=== PATIENT | female | born 1940 | race Caucasian/White ===

== ENCOUNTER 2019-06-09 10:33 | Inpatient (IN) | payer SELFPAY | END 2019-06-13 12:24 | disposition home or self-care (01) | DRG 291 | PROVIDERS: Admitting Provider Family Medicine; Family Provider Family Medicine; PCP Family Medicine; Visit Provider Family Medicine | DX: I13.0 Hypertensive heart and chronic kidney disease with heart failure and stage 1 through stage 4 chronic kidney disease, or unspecified chronic kidney disease (principal); I50.33 Acute on chronic diastolic (congestive) heart failure; N18.3 Chronic kidney disease, stage 3 (moderate); Z23 Encounter for immunization; Z86.73 Personal history of transient ischemic attack (TIA), and cerebral infarction without residual deficits; I65.23 Occlusion and stenosis of bilateral carotid arteries; I48.0 Paroxysmal atrial fibrillation; Z79.01 Long term (current) use of anticoagulants; E03.9 Hypothyroidism, unspecified; K21.9 Gastro-esophageal reflux disease without esophagitis; Z95.3 Presence of xenogenic heart valve; F40.240 Claustrophobia; I34.0 Nonrheumatic mitral (valve) insufficiency; I27.20 Pulmonary hypertension, unspecified; D64.9 Anemia, unspecified; E78.5 Hyperlipidemia, unspecified; J44.9 Chronic obstructive pulmonary disease, unspecified; Z87.891 Personal history of nicotine dependence; Z99.81 Dependence on supplemental oxygen ==

== ENCOUNTER → 2021-12-03 10:13 | Outpatient (BNVA) | payer MEDICARE, MEDICAID, SELFPAY | PROVIDERS: Family Provider Family Medicine; PCP Family Medicine; Visit Provider Family Medicine | DX: I10 Essential (primary) hypertension (principal); E78.5 Hyperlipidemia, unspecified; E03.9 Hypothyroidism, unspecified | CPT/HCPCS: 80053; 80061; 84443; 85025 ==

== ENCOUNTER → 2023-07-15 13:39 | Outpatient (BNVA) | payer MEDICARE, MEDICAID, SELFPAY | PROVIDERS: Family Provider Family Medicine; PCP Family Medicine; Visit Provider Family Medicine | DX: E03.9 Hypothyroidism, unspecified (principal); I25.10 Atherosclerotic heart disease of native coronary artery without angina pectoris; R25.1 Tremor, unspecified; M06.9 Rheumatoid arthritis, unspecified | CPT/HCPCS: 80053; 80061; 84443; 85025 ==

== ENCOUNTER 2023-10-01 06:31 | Inpatient (IN) | payer MEDICARE, SELFPAY ==
[2023-10-01] VITALS (31 sets, daily range): BP systolic 75–128; BP diastolic 35–79; PULSE 55–88; RESP 16–66; TEMP 36.6–37.6; O2SAT 84–95; BMI 21.7
--- NOTE | 2023-10-01 06:36 | ECG_ITS ---
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 Measurements Intervals [place] Rate: 66 P: 98 GA: 148 QRS: 53 QRSD: 94 T: 86 QT: 381 QTc: 399 Interpretive Statements SINUS RHYTHM WITH FREQUENT SUPRAVENTRICULAR PREMATURE COMPLEXES NONSPECIFIC ST & T-WAVE ABNORMALITY ABNORMAL RHYTHM ECG Compared to ECG 06/09/2019 15:56:42 No significant changes Electronically Signed On 10-01-2023 17:06:06 CDT by Maynor Gomes M.D. [id number]
--- NOTE | 2023-10-01 06:36 | XR_ITS ---
WS: [id number] Examination: XR chest 1V portable [id number] Reason for Exam: dyspnea/cough Date: October 01, 2023 Comparison: June 10, 2019 Findings: The heart is enlarged. Sternal wires are noted with previous valve replacement. The kwadwo are prominent with right perihilar opacity. There is pulmonary venous hypertension and I suspect mild edema. Small effusions are suspected Impression: There is cardiomegaly with pulmonary venous hypertension/mild edema Questionable minimal right perihilar infiltrate is suspected.
[2023-10-01 06:51] LABS: Basophils % 0.2 %; Hematocrit 31.3 % (36-47); Lymphocytes # 1.1 10^3/uL (0.8-4.8); Lymphocytes % 8.5 %; Mean Corpuscular HGB Conc 31.3 g/dL (30-55); Mean Corpuscular Hemoglobin 30.2 pg (27-33); Mean Corpuscular Volume 96.6 fl (85-98); Mean Platelet Volume 9.7 fL (7.4-10.4); Monocytes # 0.7 10^3/uL (0.2-0.9); Monocytes % 5.5 %; Neutrophils # 11.47 10^3/uL (1.8-7.7); Neutrophils % 85.3 %; Nucleated Red Blood Cells % 0 %; Platelet Count 164 10^3/cmm (157-399); Red Blood Count 3.24 10^6/uL (3.85-5.65); Red Cell Distribution Width 14.2 % (12.1-15.1); White Blood Count 13.45 10^3/uL (3.29-11.43)
--- NOTE | 2023-10-01 06:57 | ED_ITS ---
HPI - SOB/Dyspnea 2 General: Chief Complaint: Shortness of Breath/Dyspnea Stated Complaint: Sob, Weakness Time Seen by Provider: 10/01/23 06:35 Source: patient Mode of arrival: ambulatory History of Present Illness: HPI Narrative: 83-year-old female presents emergency ro om with complaints of progressively worsening shortness of breath weakness some low-grade fever moderate productive cough. EMS was called for shortness of breath and weakness she denies chest pain. On arrival EMS reports sats were in the 70 percentile. Patient normally wears 2 L of oxygen by nasal cannula given albuterol treatment sats improved to the 90s and then decreased into the mid upper 80s on arrival here continuing on 6 L. He denies any hemoptysis. History of previous aortic aneurysm repair in 2019. MD elicited complaint: shortness of breath and cough Pertinent past history: COPD Onset (ago): day(s) Associated symptoms: Reports chest congestion, cough and fever(s); Deny abdominal pain, chest pain, diaphoresis, dizziness, extremity pain, hemoptysis, lightheadedness, myalgias, nausea, orthopnea, palpitations, paresthesias, polydipsia, polyuria, rash, sense of impending doom, syncope or vomiting Treatment prior to arrival: oxygen and bronchodilator Review of Systems 2 Const: Reports: fever(s), chills, fatigue and malaise; Denies: diaphoresis Card: Denies: chest pain, palpitations, lightheadedness, syncope or orthopnea Resp: Reports: dyspnea, productive cough, wheezing and chest congestion; Denies: hemoptysis GI: Denies: abdominal pain, nausea or vomiting : Denies: dysuria, urinary frequency or urinary urgency Musc: Denies: neck pain, back pain or extremity pain Skin/Breast: Denies: rash Neuro: Denies: dizziness Endo: Denies: polyuria or polydipsia PFSH ED 2 PFSH: Medical History Parkinsons disease Tremor Hypothyroid Coronary artery disease Rheumatoid arthritis Physical Exam 2 Const: GENERAL APPEARANCE: cooperative and comfortable O RIENTATION/CONSCIOUSNESS: Yes awake, Yes oriented to person, Yes oriented to place and Yes oriented to time HENMT: COMMON NORMALS: normocephalic, atraumatic and hearing grossly normal bilaterally HEAD & SCALP: normocephalic and atraumatic Resp: COMMON NORMALS: normal respiratory effort, No retractions and No use of accessory muscles AUSCULTATION: rhonchi and wheezes Cardio: COMMON NORMALS: regular rate, regular rhythm and No murmurs present (Cardio) RATE: regular rate RHYTHM: regular rhythm GI: COMMON NORMALS: Soft to palpation and No hepatosplenomegaly present A USCULTATION: Yes normoactive bowel sounds PALPATION: Yes Soft to palpation, No Tenderness to palpation present (GI), No Guarding due to palpation present (GI) and Yes No hepatosplenomegaly present Extremity: COMMON NORMALS: normal to inspection, capillary refill normal, no clubbing, cyanosis or edema, no calf tenderness and no pedal edema Neuro: SENSORIUM/ORIENTATION: Yes oriented to person, Yes oriented to place and Yes oriented to time Skin: COMMON NORMALS: no rashes or lesions noted GENERAL SKIN EXAM: no rashes or lesions noted Course 2 Vital Signs: Vital signs: Vital Signs Temperature 98.0 F 10/01/23 07:26 Pulse Rate 67 10/01/23 09:15 Respiratory Rate 27 H 10/01/23 09:15 Blood Pressure 104/72 10/01/23 09:31 Pulse Oximetry 90 10/01/23 09:15 Oxygen Delivery Me thod Oxymask 10/01/23 09:15 Oxygen Flow Rate 10 10/01/23 09:15 MDM - SOB/Dyspnea Medical Decision Making Did not give sepsis bolus due to congestive heart failure COPD exacerbation with underlying pneumonia and congestive heart failure. Labs and imaging reviewed lactic acid is slightly elevated discussed Dr. Wooten antibiotics have been started I did not give a fluid bolus because of her CHF. Reviewed findings with patient as well orders written Medical Records I reviewed the patient's medical records. Lab Data I reviewed the patient's lab results. 10/01/23 06:46 10/01/23 06:46 Labs/Radiology: Laboratory Results WBC 13.45 10^3/uL (3.29-11.43) H 10/01/23 06:46 RBC 3.24 10^6/uL (3.85-5.65) L 10/01/23 06:46 Hgb 9.80 g/dL (11.27-16.99) L 10/01/23 06:46 Hct 31.3 % (36-47) L 10/01/23 06:46 MCV 96.6 fl (85-98) 10/01/23 06:46 MCH 30.2 pg (27-33) 10/01/23 06:46 MCHC 31.3 g/dL (30-55) 10/01/23 06:46 RDW 14.2 % (12.1-15.1) 10/01/23 06:46 Plt Count 164 10^3/cmm (157-399) 10/01/23 06:46 MPV 9.7 fL (7.4-10.4) 10/01/23 06:46 Neut % (Auto) 85.3 % 10/01/23 06:46 Lymph % (Auto) 8.5 % 10/01/23 06:46 Mcminn % (Auto) 5.5 % 10/01/23 06:46 Eos % (Auto) 0.0 % 10/01/23 06:46 Baso % (Auto) 0.2 % 10/01/23 06:46 Neut # (Auto) 11.47 10^3/uL (1.8-7.7) H 10/01/23 06:46 Lymph # (Auto) 1.1 10^3/uL (0.8-4.8) 10/01/23 06:46 Mcminn # (Auto) 0.7 10^3/uL (0.2-0.9) 10/01/23 06:46 Eos # (Auto) 0.0 10^3/uL (0.0-0.8) 10/01/23 06:46 Baso # (Auto) 0.0 10^3/uL (0.0-0.1) 10/01/23 06:46 Nucleated RBC % (auto) 0 % 10/01/23 06:46 Nucleated RBCs # 0.0 /100WBC 10/01/23 06:46 Specimen Type Arterial 10/01/23 06:57 Sample Site Radial, left 10/01/23 06:57 ABG pH 7.35 (7.35-7.45) 10/01/23 06:57 ABG pCO2 39.4 mmHg (35-45) 10/01/23 06:57 ABG pO2 55.9 mmHg (80.0-100.0) L 10/01/23 06:57 ABG HCO3 21.7 mmol/L (22-26) L 10/01/23 06:57 ABG O2 Saturation Not Reportable 10/01/23 06:57 ABG Base Excess -3.5 mmol/L (-2.0-2.0) L 10/01/23 06:57 Neymar Test Pos 10/01/23 06:57 A-a O2 Gradient 5.9 mmHg (5-10) 10/01/23 06:57 Hematocrit < 10.0 % (37-47) L 10/01/23 06:57 Hgb O2 Saturation Not Reportable 10/01/23 06:57 Carboxyhemoglobin Not Reportable 10/01/23 06:57 Methemoglobin Not Reportable 10/01/23 06:57 Total Hemoglobin 0.1 g/dL (12-16) L 10/01/23 06:57 Sodium 137.0 mmol/L (131-143) 10/01/23 06:57 Potassium 4.7 mmol/L (3.5-5.0) 10/01/23 06:57 Glucose 114.0 mg/dL (70-115) 10/01/23 06:57 Ionized Calcium 1.2 mmol/L (1.1-1.4) 10/01/23 06:57 O2 Delivery Device Nc 10/01/23 06:57 O2 Liters/Min 7.0 % 10/01/23 06:57 Gas Substation Operator ID [place] 10/01/23 06:57 Sodium 134 mmol/L (136-145) L 10/01/23 06:46 Potassium 4.7 mmol/L (3.5-5.1) 10/01/23 06:46 Chloride 97 mmol/L (98-107) L 10/01/23 06:46 Carbon Dioxide 20 mmol/L (22-29) L 10/01/23 06:46 Anion Gap 21.7 (5-19) H 10/01/23 06:46 BUN 46 mg/dL (8-23) H 10/01/23 06:46 Creatinine 1.9 mg/dL (0.5-0.9) H 10/01/23 06:46 GFR Calculation Not Reportable 10/01/23 06:46 Glucose 117 mg/dL (65-115) H 10/01/23 06:46 Calculated Osmolality 291 mOsm/kg (285-295) 10/01/23 06:46 Lactic Acid 2.3 mmol/L (0.5-2.2) H 10/01/23 06:46 Calcium 8.7 mg/dL (8.5-10.5) 10/01/23 06:46 Total Bilirubin 1.2 mg/dL (0.15-1.2) 10/01/23 06:46 AST 234 U/L (0-32) H 10/01/23 06:46 ALT 108 U/L (0-33) H 10/01/23 06:46 Alkaline Phosphatase 90 U/L (35-105) 10/01/23 06:46 Troponin T Baseline 45 ng/L (0-10) H 10/01/23 06:46 Troponin T 120 Minute 45.56 ng/L (0-10) H 10/01/23 08:23 Delta Troponin T 0.56 ABS# (0-10) 10/01/23 08:23 NT-Pro-B Natriuret Pep 55412 pg/mL (0-450) H 10/01/23 06:46 Total Protein 6.8 g/dL (6.6-8.7) 10/01/23 06:46 Albumin 3.5 g/dL (3.5-5.2) 10/01/23 06:46 Globulin 3.3 g/dL (1.3-4.6) 10/01/23 06:46 Procalcitonin 2.65 ng/mL (0-0.5) H 10/01/23 06:46 Urine Color Yellow (Yellow) 10/01/23 07:26 Urine Appearance Clear (CLEAR) 10/01/23 07:26 Urine pH 5 (5-7) 10/01/23 07:26 Ur Specific Cameron 1.020 (1.005-1.030) 10/01/23 07:26 Urine Protein Neg (Negative) 10/01/23 07:26 Urine Glucose (UA) Norm (Normal) 10/01/23 07:26 Urine Ketones Negative (Negative) 10/01/23 07:26 Urine Blood 2+ (Negative) H 10/01/23 07:26 Urine Nitrate Negative (Negative) 10/01/23 07:26 Urine Bilirubin Neg (Negative) 10/01/23 07:26 Urine Urobilinogen Neg mg/dL (Negative) 10/01/23 07:26 Ur Leukocyte Esterase Trace (Negative) H 10/01/23 07:26 Urine RBC 0-4 /hpf (0-2) H 10/01/23 07:26 Urine WBC 0-4 /hpf (0-5) H 10/01/23 07:26 Ur Squamous Epith Cells 5-10 /hpf (0-5) H 10/01/23 07:26 Ur Transition Epith Cell 0-4 /hpf 10/01/23 07:26 Amorphous Sediment Not Reportable 10/01/23 07:26 Urine Bacteria 1+ /hpf (NONE) H 10/01/23 07:26 Hyaline Casts 15-25 /lpf H 10/01/23 07:26 Urine Mucus Trace /hpf 10/01/23 07:26 All radiology interpretation(s) finalized by discharge Discharge Plan Discharge Patient Disposition: Admitted As Inpatient Admit Provider: Johnnie Wooten Clinical Impression: Congestive heart failure, Acute exacerbation of chronic obstructive airways disease, Community acquired pneumonia, Parkinsons disease, Rheumatoid arthritis Condition: Stable Coding Level of Care Code ED Atmospheric Sciences Professor for Tory Walsh
[2023-10-01] MEDS: dexamethasone 10 mg/mL INJ IM (06:59)
[2023-10-01 07:08] LABS: ABG PCO2 39.4 mmHg (35-45); ABG PH Result 7.35 (7.35-7.45); Alveolar-Arterial Oxygen Gradi 5.9 mmHg (5-10); Arterial Blood Gas Hematocrit < 10.0 % (37-47); Base Excess ABG -3.5 mmol/L (-2.0-2.0); Blood Gas Allen Test Pos; Blood Gas Operator Identificat WALCI; Blood Gas Sample Site Radial, left; Blood Gas Sample Type Arterial; HCO3 ABG 21.7 mmol/L (22-26); Ionized Calcium Level - ABG 1.2 mmol/L (1.1-1.4); Oxygen Device NC; PO2 ABG 55.9 mmHg (80.0-100.0); Potassium Level - ABG 4.7 mmol/L (3.5-5.0); Total Hemoglobin 0.1 g/dL (12-16)
[2023-10-01 07:12] LABS: Alanine Aminotransferase 108 U/L (0-33); Albumin Level 3.5 g/dL (3.5-5.2); Alkaline Phosphatase 90 U/L (35-105); Anion Gap 21.7 (5-19); Aspartate Amino Transferase 234 U/L (0-32); Blood Urea Nitrogen 46 mg/dL (8-23); Calcium 8.7 mg/dL (8.5-10.5); Carbon Dioxide 20 mmol/L (22-29); Chloride 97 mmol/L (98-107); Creatinine Clr Calc Pharmacy 16.4143; Globulin 3.3 g/dL (1.3-4.6); Glucose 117 mg/dL (65-115); Osmolality Calculated 291 mOsm/kg (285-295); Potassium 4.7 mmol/L (3.5-5.1); Sodium 134 mmol/L (136-145); Total Bilirubin 1.2 mg/dL (0.15-1.2); Total Protein 6.8 g/dL (6.6-8.7)
[2023-10-01 07:13] LABS: Troponin(5th) Baseline 45 ng/L (0-10)
[2023-10-01] MEDS: ipratropium-albuterol 3 mL Neb INHALATION ×3 (07:15→20:12)
--- NOTE | 2023-10-01 07:45 | US_ITS ---
WS: [id number] RIGHT UPPER QUADRANT ULTRASOUND HISTORY: elevated transaminases COMPARISON: None available. Liver: 04/19/2019 cm in length. Normal size liver and echogenicity. No bile duct dilatation or mass. Portal Vein: Normal hepatopetal flow with monophasic waveform. Gallbladder: Normal gallbladder. There is mild gallbladder wall thickening but no stones or perichole cystic fluid. CBD: 0.2 cm Pancreas: Partially visualized and normal. Right kidney: 9.7 cm in length. Normal size and echogenicity. No hydronephrosis or mass. Aorta and IVC: Unremarkable abdominal aorta and IVC. Very small RIGHT pleural effusion and a very small amount of ascites. IMPRESSION: 1. Mild diffuse gallbladder wall thickening with no evidence for acute cholecystitis otherwise. Ther e are no stones or pericholecystic fluid. 2. No bile duct dilatation. 3. Very small RIGHT pleural effusion and a small amount of ascites.
--- NOTE | 2023-10-01 07:57 | PC.PHAR ---
pt states she takes care of her own medications-pt states she didnt take any meds today-pt brought in her med bottles she is taking except for her norco 5/325mg states she is still taking-ext med history shows carbidopa levodopa 10/100mg 1.5 tab tid filled 10/01/23 40d/s pt states she was really depressed and had upset stomach when taking states she told and was told to stop taking pt states she believes she stop taking it states she didnt bring the bottle in with her meds then shes not taking-
[2023-10-01 07:59] LABS: Protein Urine Neg (Negative); Urine Appearance Clear (CLEAR); Urine Color Yellow (Yellow); pH Urine 5 (5-7)
[2023-10-01 08:00] LABS: Add Urine Microscopic? YES; Bacteria Urine 1+ /hpf; Bilirubin Urine Neg (Negative); Blood Urine 2+ (Negative); Glucose Urine UA Norm (Normal); Ketones Urine Negative (Negative); Leukocyte Esterase Urine Trace (Negative); Nitrate Urine Negative (Negative); RBC Urine 0-4 /hpf (0-2); Urobilinogen Urine Neg (Negative); WBC Urine 0-4 /hpf (0-5)
[2023-10-01 08:01] LABS: Mucus Urine TRACE /hpf; Transitional Epi Cells Urine 0-4 /hpf
[2023-10-01 08:02] LABS: Add Urine Culture? No; Hyaline Casts Urine 15-25 /lpf
[2023-10-01 08:04] LABS: NT Pro B Type Natriuretic Pept 22694 pg/mL (0-450); Procalcitonin 2.65 ng/mL (0-0.5)
[2023-10-01] MEDS: FUROsemide 10 mg/mL SDV 10mL 60 MG IVP (08:36)
[2023-10-01] MEDS: cefTRIAXone 1,000 MG in sodium chloride 0.9% (plus) 50 ML 100 MG IV (08:36)
--- NOTE | 2023-10-01 08:36 | ECG_ITS ---
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 Measurements Intervals [place] Rate: 65 P: 94 AL: 144 QRS: 51 QRSD: 98 T: 85 QT: 420 QTc: 437 Interpretive Statements SINUS RHYTHM Compared to ECG 10/01/2023 06:47:03 T-wave abnormality no longer present Electronically Signed On 10-01-2023 17:34:09 CDT by Maynor Gomes M.D. [email or web address] [id number]
[2023-10-01 08:40] LABS: Lactic Sepsis W/Reflex 2.3 mmol/L (0.5-2.2)
[2023-10-01 08:45] LABS: Troponin 5 2HR 45.56 ng/L (0-10); Troponin 5 2HR Delta 0.56 ABS# (0-10)
--- NOTE | 2023-10-01 09:13 | USCV_ITS ---
Lurdes Elena Age: 83 Gender: F : 1940 Exam Date: 10/01/2023 10:35 Ordering Phys: Johnnie Wooten MD Technologist: Jitendra Lucio [place] [facility] [place]: chf BP: 104 / 72 HR: 58 Rhythm: Sinus Technical Quality: Adequate MEASUREMENTS (Male / Female) Normal Values 2D ECHO LVOT Diameter 2.0 cm LV Ejection Fraction MOD 2C 79.1 % LV Ejection Fraction 2C AL 79.6 % LA Diameter 4.2 cm RA Systolic Volume 4C AL 29.9 ml RA Systolic Volume 4C MOD 29.5 ml Aorta at Sinotubular Diameter 1.9 cm IVC Diameter 2.2 cm M-MODE LA Ao Ratio MM 1.4 AV Cusp Separation MM 1.0 cm DOPPLER AV Peak Velocity 250.0 cm/s AV Area Cont Eq vti 1.9 cm squared AV Area Cont Eq pk 1.9 cm squared MV Peak Velocity 174.0 cm/s MV Area PHT 2.8 cm squared Mitral E to A Ratio 1.9 TR Peak Velocity 427.0 cm/s TR Peak Gradient 72.9 mmHg TR Mean Velocity 360.0 cm/s TR Mean Gradient 53.7 mmHg TR Velocity Time Integral 143.9 cm PV Peak Velocity 81.7 cm/s RV Ejection Time 0.3 s FINDINGS Left Ventricle Left ventricle is normal in size. LV systolic function is normal with EF of 55 to 60%. No regional wall motion abnormalities. Grade 3 diastolic dysfunction. Right Ventricle Normal in size and function Right Atrium Normal in size Left Atrium Normal in size Mitral Valve Structurally normal mitral valve. Moderate mitral regurgitation. Aortic Valve Aortic valve is thickened. Moderate aortic regurgitation. Mild aortic stenosis with aortic valve area of 1.91 cm squared and mean gradient of 11 mmHg. Tricuspid Valve Moderate tricuspid regurgitation. RVSP is more than 70 mmHg. This is consistent with severe pulmonary hypertension. Pulmonic Valve Moderate pulmonic regurgitation. Pericardium Normal Aorta Normal in size IVC Dilated CONCLUSIONS LV systolic function is normal with EF of 55 to 60%. Grade 3 diastolic dysfunction. Moderate mitral regurgitation. Moderate aortic regurgitation. Mild aortic stenosis. Moderate tricuspid regurgitation. Severe pulmonary hypertension Moderate pulmonic regurgitation IVC is dilated. Jean Prince MD (Electronically Signed) Final Date: 01 October 2023 11:34 S
[2023-10-01] MEDS: azithromycin 500 MG in sodium chloride 0.9% 250 ML 250 MG IV (09:29)
[2023-10-01 09:48] LABS: Adenovirus Not Detected (NOT DETECT); Chlamydia Pneumoniae Not Detected (NOT DETECT); Coronavirus 229E,HKU1,NL63,OC4 Not Detected (NOT DETECT); Human Metapneumovirus Not Detected (NOT DETECT); Human Rhinovirus/Enterovirus Not Detected (NOT DETECT); Influenza A Not Detected (NOT DETECT); Influenza A H1 Not Detected (NOT DETECT); Influenza A H1-2009 Not Detected (NOT DETECT); Influenza A H3 Not Detected (NOT DETECT); Influenza B Not Detected (NOT DETECT); Mycoplasma Pneumoniae Not Detected (NOT DETECT); Parainfluenza Virus Type 1 Not Detected (NOT DETECT); Parainfluenza Virus Type 2 Not Detected (NOT DETECT); Parainfluenza Virus Type 3 Not Detected (NOT DETECT); Parainfluenza Virus Type 4 Not Detected (NOT DETECT); Respiratory Syncytial Virus A Not Detected (NOT DETECT); Respiratory Syncytial Virus B Not Detected (NOT DETECT); SARS-COV-2 Not Detected (NOT DETECT)
[2023-10-01 09:49] LABS: Iron 35 ug/dL (37-145); Percent Saturation 15.5 % (20-50); Thyroid Stimulating Hormone 0.51 uIU/mL (0.27-4.20); Total Iron Binding Capacity 225 mcg/dl; Unsaturated Iron Binding 190 ug/dL (112-347)
[2023-10-01 10:03] LABS: Ferritin 1125 ng/mL (15-150)
[2023-10-01 10:16] LABS: Reflex Lactate Order REFLEX LACTIC ORDERD
--- NOTE | 2023-10-01 10:39 | PM.HP ---
Documented by User: Ct Magdalena, [facility] 10/01/23 13:34 Providers/Chief Complaint Admitting Physician: Johnnie Wooten MD Primary Care Provider: Jerry Xavier MD Chief Complaint: Sob, Weakness History of Present Illness Lurdes Elena is a 83 year old female with past medical history of hypothyroidism, CAD, Parkinsons disease, rheumatoid arthritis, and arterial fibrillation on chronic anticoagulation of Eliquis, and a recent aortic aneurysm repair in 2019. Mrs. Elena presents to the emergency department today for chief complaint of weakness and shortness of breath, currently on 10L oxymask. About 3 days ago patient started feeling more short of breath and weak, today she felt her worst and on arrival to the emergency room her oxygen stat was noted to be about 70%, she is currently supplemented with 10L oxymask. She reports that she does wear 2L NC at baseline. She currently denies chest pain, nausea, vomiting, diarrhea. Reports low grade fevers, chills, fatigue, wheezing,and a moderate productive cough. While in the Emergency Department patient received 1000mg IV Rocephin, 500mg IV azithromycin, 60mg IVP Lasix, 10mg IVP Decadron, and douneb breathing treatment. A CBC, CMP, UA, BNP, Troponin series, prcalcitonin, TSH, Lactic acid, respiratory panel were obtained. A chest x-ray and gallbladder ultrasound ordered as well. Patient to be transferred to the ICU for further treatment of COPD excerbation with underlying pneumonia, and CHF. . Review of Systems General: Reports: 10 or more systems reviewed and unremarkable except in HPI and below Medications/Allergies Home Medications Medication Instructions Recorded Confirmed Last Taken Type atorvastatin 20 mg tablet 20 mg PO DAILY #90 tabs 07/15/23 10/01/23 Unknown Rx hydrocodone 5 mg-acetaminophen 325 1 tab PO BID 1 month #60 tabs 09/15/23 10/01/23 Unknown Rx mg tablet clonazepam 0.5 mg tablet (Klonopin) 0.5 mg PO BID #60 tabs 09/16/23 10/01/23 Unknown Rx amlodipine 5 mg tablet 5 mg PO DAILY 10/01/23 10/01/23 09/30/23 History apixaban 2.5 mg tablet (Eliquis) 2.5 mg PO BID 10/01/23 10/01/23 Unknown History furosemide 40 mg tablet 40 mg PO DAILY 10/01/23 10/01/23 Unknown History isosorbide mononitrate 60 mg 60 mg PO DAILY 10/01/23 10/01/23 Unknown History tablet,extended release 24 hr levothyroxine 50 mcg tablet 50 mcg PO DAILY 10/01/23 10/01/23 Unknown History losartan 50 mg tablet 50 mg PO DAILY 10/01/23 10/01/23 Unknown History meloxicam 7.5 mg tablet 7.5 mg PO DAILY 10/01/23 10/01/23 Unknown History potassium chloride 20 mEq 20 meq PO DAILY 10/01/23 10/01/23 Unknown History tablet,extended release(part/cryst) (Klor-Con M) propranolol 10 mg tablet 10 mg PO BID 10/01/23 10/01/23 Unknown History Allergies Allergy/AdvReac Type Severity Reaction Status Date / Time No Known Allergies Allergy Verified 10/01/23 06:42 PFSH Acute PFSH: Medical History (Updated 10/01/23 @ 11:28 by Johnnie Wooten MD) Chronic kidney disease Anxiety Hypertension Atrial fibrillation Parkinsons disease Tremor Hypothyroid Coronary artery disease Rheumatoid arthritis Surgical History (Updated 10/01/23 @ 11:28 by Johnnie Wooten MD) History of aortic valve replacement Bioprosthetic valve Family History Other Cancer Social History (Updated 10/01/23 @ 11:25 by Johnnie Wooten MD) Smoking and tobacco/nicotine status: former use of tobacco/nicotine Alcohol intake: never Vitals/I&O/Wt Last Vital Signs Temp 98.0 F 10/01/23 07:26 Pulse 64 10/01/23 10:15 Resp 27 H 10/01/23 10:15 BP 104/72 10/01/23 09:31 Pulse Ox 89 L 10/01/23 10:15 O2 Del Method Oxymask, Simple Mask 10/01/23 10:19 O2 Flow Rate 10 10/01/23 09:15 09/30/23 10/01/23 10/01/23 22:59 06:59 14:59 Intake Total 50 / 50 Balance 50 / 50 Weight last 48 hrs Weight 104 lb Physical Exam Narrative: General exam is an white female, on 10L oxymask. HEENT: Atraumatic normocephalic. Oropharynx clear Neck is supple no lymphadenopathy thyromegaly Cardiovascular normal rhythm, regular rate, no murmur. Lungs diminished breath sounds bilaterally. Occasional wheezes. Abdomen is soft with positive bowel sounds. No obvious organomegaly exams deferred Extremities no cyanosis, or edema, cap refill brisk. Skin no rash Neuro no focal deficits Urinary Catheter Management: Toney: Cath Placed During This Visit: yes Urinary Catheter Date of Insertion: 10/01/23 Urinary Catheter Time of Insertion: 10:16 Data 10/01/23 06:46 10/01/23 06:46 Other Labs: 10/01/23 WBC 13.45, Neut 11.47 Hgb 9.8, Hct 31.3 Na 134 BUN 46, Soaping Machine Back Tender 1.9 Anion Gap 21.7 Lactic Acid 2.3 Iron 35, Ferritin 1125 AST 234, ALT 108 Baseline Troponin 45, Tropoinin 120min 45.56 BNP 42100 TSH 0.51 Procalcitonin 2.65 UA: 1+ bacteria, squamous epith cells 5-10, wbc 0-4, hyaline casts 15-25, 2+blood EKG 10/01/23 IMPRESSION: Sinus Rhythm with frequent PVCs, heart rate of 66 Chest X-ray 10/01/23 IMPRESSION: Cardiomegaly with pulmonary venous hypertension/mild edema, questionable minimal right perihilar infiltrate is suspected. Gallbladder Ultrasound 10/01/23 IMPRESSION: 1. Mild diffuse gallbladder wall thickening with no evidence for acute cholecystitis otherwise. There are no stones or pericholecystic fluid. 2. No bile duct dilatation. 3. Very small RIGHT pleural effusion and a small amount of ascites A&P Assessment and plan (1) Acute hypoxic respiratory failure: Secondary to possible pneumonia Supplement Oxygen as needed Duonebs Q4H Flu swab negative Covid Swab negative Sputum Culture ordered Blood culture ordered (2) Congestive heart failure: BNP elevated at 22,694 on 10/01/23 Lasix 20mg IVP Q24 Monitor I&O Place toney catheter (3) Community acquired pneumonia: Initiate Zoysn IV Initiate Vancomycin IV Supplement Oxygen as needed Dounebs Q4H Aspiration precautions (4) Acute exacerbation of chronic obstructive airways disease: Flu swab negative Covid swab negative IV steriods of solu-medrol Dounebs Q4H Sputum Cultures (5) Anemia: CBC in am. Consider supplementation if hgb below 7 Obtain occult stool Monitor for bleeding. Fall precautions (6) Acute kidney injury: Renal dosing on renal toxic medications BUN 46, Soaping Machine Back Tender 1.9 CMP in am (7) Transaminitis: AST 234, ALT 108. Elevation my be secondary to sepsis pneumonia CMP in am (8) Elevated troponin: Likely type II, denies chest pain currently. Troponin series ordered, monitor. (9) Atrial fibrillation: Known history of afib on chronic anticoagulation of Eliquis. Hold Eliquis due to anemia, place on Sub q heparin. Cardiac monitoring fall precautions Continue propranolol (10) History of aortic valve replacement: History of aortic valve replacement in 2019. Echo ordered. Coding Level of Care Code Critical Care >/= 30 minutes Diagnoses Acute hypoxic respiratory failure J96.01 Congestive heart failure I50.9 Community acquired pneumonia J18.9 Acute exacerbation of chronic obstructive airways disease J44.1 Anemia D64.9 Acute kidney injury N17.9 Transaminitis R74.01 Elevated troponin R79.89 Atrial fibrillation I48.91 History of aortic valve replacement Z95.2 Documented by User: Johnnie Wooten MD 10/01/23 13:48 Providers/Chief Complaint Chief Complaint: Sob, Weakness History of Present Illness Lurdes Elena is a 83 year old female with past medical history of hypothyroidism, CAD, Parkinsons disease, rheumatoid arthritis, and arterial fibrillation on chronic anticoagulation of Eliquis, and a recent aortic valve repair in 2019. Mrs. Elena presents to the emergency department today for chief complaint of weakness and shortness of breath for about the last week, currently on 10L oxymask. About 3 days ago patient started feeling more short of breath and weak, today she felt her worst and on arrival to the emergency room her oxygen stat was noted to be about 70%, she is currently supplemented with 10L oxymask. She reports that she does wear 2L NC at baseline. She currently denies chest pain, nausea, vomiting, diarrhea. Reports low grade fevers, chills, fatigue, wheezing,and a moderate productive cough. She believes she had a fever, at the start of the illness around 1 week ago. She does not believe she has any significant swelling. While in the Emergency Department patient received 1000mg IV Rocephin, 500mg IV azithromycin, 60mg IVP Lasix, 10mg IVP Decadron, and douneb breathing treatment. A CBC, CMP, UA, BNP, Troponin series, prcalcitonin, TSH, Lactic acid, respiratory panel were obtained. A chest x-ray and gallbladder ultrasound ordered as well. Patient to be transferred to the ICU for further treatment of COPD excerbation with underlying pneumonia, and CHF. . Review of Systems Card: Denies: chest pain Resp: Reports: dyspnea and non-productive cough GI: Denies: abdominal pain, nausea, vomiting, hematochezia or melena Medications/Allergies Home Medications Medication Instructions Recorded Confirmed Last Taken Type atorvastatin 20 mg tablet 20 mg PO DAILY #90 tabs 07/15/23 10/01/23 Unknown Rx hydrocodone 5 mg-acetaminophen 325 1 tab PO BID 1 month #60 tabs 09/15/23 10/01/23 Unknown Rx mg tablet clonazepam 0.5 mg tablet (Klonopin) 0.5 mg PO BID #60 tabs 09/16/23 10/01/23 Unknown Rx amlodipine 5 mg tablet 5 mg PO DAILY 10/01/23 10/01/23 09/30/23 History apixaban 2.5 mg tablet (Eliquis) 2.5 mg PO BID 10/01/23 10/01/23 Unknown History furosemide 40 mg tablet 40 mg PO DAILY 10/01/23 10/01/23 Unknown History isosorbide mononitrate 60 mg 60 mg PO DAILY 10/01/23 10/01/23 Unknown History tablet,extended release 24 hr levothyroxine 50 mcg tablet 50 mcg PO DAILY 10/01/23 10/01/23 Unknown History losartan 50 mg tablet 50 mg PO DAILY 10/01/23 10/01/23 Unknown History meloxicam 7.5 mg tablet 7.5 mg PO DAILY 10/01/23 10/01/23 Unknown History potassium chloride 20 mEq 20 meq PO DAILY 10/01/23 10/01/23 Unknown History tablet,extended release(part/cryst) (Klor-Con M) propranolol 10 mg tablet 10 mg PO BID 10/01/23 10/01/23 Unknown History Allergies Allergy/AdvReac Type Severity Reaction Status Date / Time No Known Allergies Allergy Verified 10/01/23 06:42 PFSH Acute PFSH: Medical History (Updated 10/01/23 @ 11:28 by Johnnie Wooten MD) Chronic kidney disease Anxiety Hypertension Atrial fibrillation Parkinsons disease Tremor Hypothyroid Coronary artery disease Rheumatoid arthritis Surgical History (Updated 10/01/23 @ 11:28 by Johnnie Wooten MD) History of aortic valve replacement Bioprosthetic valve Family History Other Cancer Social History (Updated 10/01/23 @ 11:25 by Johnnie Wooten MD) Smoking and tobacco/nicotine status: former use of tobacco/nicotine Alcohol intake: never Physical Exam Urinary Catheter Management: Toney: Cath Placed During This Visit: yes Data 10/01/23 06:46 10/01/23 06:46 A&P Assessment and plan (1) Acute hypoxic respiratory failure: Secondary to possible pneumonia or CHF Supplement Oxygen as needed Duonebs Q4H Flu swab negative Covid Swab negative Sputum Culture ordered Blood culture ordered MRSA PCR (2) Congestive heart failure: At this point considering echocardiogram results, diagnosis is acute diastolic heart failure. BNP elevated at 22,694 on 10/01/23 Lasix 40 mg IV every 12 [address] toney catheter BMP daily. Lasix is a potentially renal toxic medication Echocardiogram I ordered today demonstrates grade 3 diastolic dysfunction, moderate aortic and mitral regurgitation and severe pulmonary hypertension. Secondary to severe pulmonary hypertension and moderate pulmonary regurgitation, and this patient with preserved EF, will obtain CTA if renal function improves. Initially placed on heparin subcu for anticoagulation. She was on Eliquis at home which she states she was compliant with. Considering the severe pulmonary hypertension there may still be a possibility of pulmonary embolism. Will go ahead and perform a D-dimer, and if significantly elevated consider full anticoagulation until further workup can be completed. (3) Community acquired pneumonia: Initiate Zoysn IV Initiate Vancomycin IV Supplement Oxygen as needed Dounebs Q4H Aspiration precautions, speech eval Sputum and blood cultures as noted above (4) Acute exacerbation of chronic obstructive airways disease: Flu swab negative Covid swab negative IV steriods of solu-medrol, 60 mg every 12 hours Dounebs Q4H Sputum Cultures (5) Anemia: CBC in am. Consider supplementation if hgb below 7 Obtain occult stool Monitor for bleeding. Fall precautions Iron studies Protonix 40 mg IV every 12 hours Hold anti-inflammatories (6) Acute kidney injury: Renal dosing on renal toxic medications BUN 46, Soaping Machine Back Tender 1.9 CMP in am Note she has underlying chronic kidney disease Hold losartan secondary to acute kidney injury. Hold anti-inflammatories (7) Transaminitis: AST 234, ALT 108. Elevation my be secondary to sepsis pneumonia or even congestion from CHF CMP in am (8) Elevated troponin: Likely type II, denies chest pain currently. Troponin series ordered, monitor. Echocardiogram as above (9) Atrial fibrillation: Known history of afib on chronic anticoagulation of Eliquis. Hold Eliquis due to anemia, place on Sub q heparin. If dimer elevated consider heparin drip Cardiac monitoring fall precautions Continue propranolol Hold Imdur, amlodipine secondary to concern for possible hypotension. (10) History of aortic valve replacement: Plan Other medical problems as outlined in past medical history Full code currently Heparin for DVT prophylaxis Attestations Medical Necessity Statement*: Will need greater than 2 midnight stay for evaluation and treatment of acute hypoxic respiratory failure with need of significant oxygen amount, CHF and pneumonia. Critical Care Time: The high probability of a clinically significant, sudden or life threatening deterioration of the patient's [pulmonary, cardiac, renal] system(s) required my full and direct attention, intervention and personal management. The critical care time is as shown. This time is in addition to time spent performing any reported procedures but includes the following: [x] Data and vital sign review and interpretation [x] Patient assessment, examination and intervention [x] Documentation [x] Medication orders and management Critical Care Time (min): 65 Coding Level of Care Code Critical Care >/= 30 minutes Critical care time (in minutes): 65 Diagnoses Acute hypoxic respiratory failure J96.01 Congestive heart failure I50.9 Community acquired pneumonia J18.9 Acute exacerbation of chronic obstructive airways disease J44.1 Anemia D64.9 Acute kidney injury N17.9 Transaminitis R74.01 Elevated troponin R79.89 Atrial fibrillation I48.91 History of aortic valve replacement Z95.2
[2023-10-01] MEDS: heparin 5,000 unit/mL INJ 1 mL 5000 UNIT SUBCUT ×2 (10:44→20:13)
[2023-10-01] MEDS: pantoprazole 40 mg SDV IVP ×2 (10:44→20:11)
[2023-10-01] MEDS: vancomycin 750 MG in sodium chloride 0.9% 250 ML 250 MG IV (10:45)
[2023-10-01 11:46] LABS: Creatine Phosphokinase 142 U/L (26-192)
[2023-10-01] MEDS: piperacillin-tazobactam 3.375 GM in sodium chloride 0.9% (plus) 50 ML IV ×2 (12:26→22:08)
--- NOTE | 2023-10-01 12:36 | ECG_ITS ---
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 Measurements Intervals [place] Rate: 62 P: 99 [place]: 155 QRS: 58 QRSD: 95 T: 78 QT: 434 QTc: 443 Interpretive Statements SINUS RHYTHM Compared to ECG 10/01/2023 08:55:35 No significant changes Electronically Signed On 10-01-2023 17:37:03 CDT by Maynor Gomes M.D. [id number]
[2023-10-01 12:50] LABS: Troponin 5 6HR 40.76 ng/L (0-10); Troponin 5 6HR Delta -4.24 ng/L (0-12)
[2023-10-01 14:10] LABS: D Dimer 0.95 ug/mLFEU (0-0.59)
[2023-10-01] MEDS: HYDROcodone-acetaminophen 5-325 mg Tablet 1 TAB PO (17:29)
[2023-10-01] MEDS: CLONazepam 0.5 mg Tablet PO (17:29)
[2023-10-01] MEDS: FUROsemide 10 mg/mL SDV 4mL 40 MG IVP (20:05)
[2023-10-01] MEDS: budesonide 0.5 mg/2 mL Neb INHALATION (20:12)
[2023-10-01] MEDS: methylPREDNISolone sod succ 125 mg/2 mL INJ 60 MG IVP (20:16)
[2023-10-02] VITALS (20 sets, daily range): BP systolic 112–138; BP diastolic 39–63; PULSE 52–98; RESP 13–26; TEMP 36.3–36.8; O2SAT 82–97
[2023-10-02] MEDS: ipratropium-albuterol 3 mL Neb INHALATION ×4 (02:32→20:00)
--- NOTE | 2023-10-02 04:24 | PC.NURSE ---
This RN agrees with all documentations and administration of care of SN. Nichole
[2023-10-02 05:26] LABS: Basophils % 0.1 %; Hematocrit 30.2 % (36-47); Lymphocytes # 0.9 10^3/uL (0.8-4.8); Lymphocytes % 8.9 %; Mean Corpuscular HGB Conc 32.1 g/dL (30-55); Mean Corpuscular Hemoglobin 30.5 pg (27-33); Mean Platelet Volume 10.2 fL (7.4-10.4); Monocytes # 0.2 10^3/uL (0.2-0.9); Neutrophils # 9.32 10^3/uL (1.8-7.7); Neutrophils % 88.5 %; Nucleated Red Blood Cells % 0 %; Platelet Count 158 10^3/cmm (157-399); Red Blood Count 3.18 10^6/uL (3.85-5.65); White Blood Count 10.53 10^3/uL (3.29-11.43)
[2023-10-02 05:45] LABS: Alanine Aminotransferase 84 U/L (0-33); Albumin Level 3.4 g/dL (3.5-5.2); Alkaline Phosphatase 82 U/L (35-105); Anion Gap 17.9 (5-19); Aspartate Amino Transferase 123 U/L (0-32); Blood Urea Nitrogen 63 mg/dL (8-23); Calcium 8.8 mg/dL (8.5-10.5); Carbon Dioxide 25 mmol/L (22-29); Chloride 102 mmol/L (98-107); Creatinine Clr Calc Pharmacy 15.5936; Globulin 3.1 g/dL (1.3-4.6); Glucose 201 mg/dL (65-115); Magnesium 2.5 mg/dL (1.7-2.3); Osmolality Calculated 316 mOsm/kg (285-295); Potassium 3.9 mmol/L (3.5-5.1); Sodium 141 mmol/L (136-145); Total Bilirubin 0.6 mg/dL (0.15-1.2); Total Protein 6.5 g/dL (6.6-8.7)
[2023-10-02] MEDS: FUROsemide 10 mg/mL SDV 4mL 40 MG IVP ×3 (07:59→21:26)
[2023-10-02] MEDS: methylPREDNISolone sod succ 125 mg/2 mL INJ 60 MG IVP (08:01)
[2023-10-02] MEDS: CLONazepam 0.5 mg Tablet PO (08:23)
[2023-10-02] MEDS: HYDROcodone-acetaminophen 5-325 mg Tablet 1 TAB PO ×2 (08:23→17:11)
[2023-10-02] MEDS: propranolol 20 mg Tablet 10 MG PO (08:23)
[2023-10-02] MEDS: levothyroxine 50 mcg Tablet PO (08:23)
[2023-10-02] MEDS: budesonide 0.5 mg/2 mL Neb INHALATION ×2 (08:43→20:00)
[2023-10-02] MEDS: heparin 5,000 unit/mL INJ 1 mL 5000 UNIT SUBCUT ×2 (09:19→21:26)
[2023-10-02] MEDS: pantoprazole 40 mg SDV IVP ×2 (09:22→21:26)
--- NOTE | 2023-10-02 10:42 | CTR_ITS ---
PROCEDURE INFORMATION: Exam: CT Chest Without Contrast; Diagnostic Exam date and time: 10/02/2023 11:04 AM Age: 83 years old Clinical indication: Other: Abd pain; Shortness of breath; Additional info: Resp failure, keshia on ckd, transaminitis TECHNIQUE: Imaging protocol: Diagnostic computed tomography of the chest without contrast. Radiation optimization: All CT scans at this facility use at least one of these dose optimization techniques: automated exposure control; mA and/or kV adjustment per patient size (includes targeted exams where dose is matched to clinical indication); or iterative reconstruction. COMPARISON: CR XR chest 1V portable [id number] 10/01/2023 7:06 AM RADIATION DOSE METRICS: Total DLP (mGy-cm): 496.17 FINDINGS: Tubes, catheters and devices: There are sternal wires consistent with previous sternotomy incision. Trachea: Central airways are patent, intraluminal debris seen at the distal subsegmental airways. Lungs: Right upper lobe and left lower lobe ground-glass to patchy opacities, compression atelectasis of the right and left lower lobes, right greater than left. Pleural spaces: No pneumothorax. [id number] right-sided pleural effusion, small left-sided pleural effusion. Heart: Cardiomegaly. Aortic valve calcifications. Moderate triple-vessel coronary artery calcifications. Lymph nodes: Enlarged right paratracheal lymph node measuring 1.2 centimeters. Vasculature: The pulmonary artery is dilated measuring 3.5 centimeters. Scattered atherosclerotic plaques of the thoracic aorta. Bones/joints: Unremarkable. No acute fracture. Soft tissues: Unremarkable. PROCEDURE INFORMATION: Exam: CT Abdomen And Pelvis Without Contrast Exam date and time: 10/02/2023 11:04 AM Age: 83 years old Clinical indication: Other: Abd pain; Shortness of breath; Additional info: Resp failure, keshia on ckd, transaminitis TECHNIQUE: Imaging protocol: Computed tomography of the abdomen and pelvis without contrast. Radiation optimization: All CT scans at this facility use at least one of these dose optimization techniques: automated exposure control; mA and/or kV adjustment per patient size (includes targeted exams where dose is matched to clinical indication); or iterative reconstruction. COMPARISON: CT abdomen pelvis wo con [id number] 03/31/2019 10:31 AM RADIATION DOSE METRICS: Total DLP (mGy-cm): 496.17 FINDINGS: Liver: Normal. No mass. Gallbladder and bile ducts: Mild pericholecystic fluid around the gallbladder, correlate with right upper quadrant ultrasound. Pancreas: There is diffuse, benign fatty infiltration of the pancreas. Spleen: Normal. No splenomegaly. Adrenal glands: Normal. No mass. Kidneys and ureters: No hydronephrosis or nephrolithiasis. Ureters are normal. Exophytic low attenuating right renal cyst likely a cyst measuring 1.9 centimeters. Stomach and bowel: Stomach, small bowel, and large bowel are nondilated. Scattered colonic diverticula without any evidence of acute diverticulitis. Appendix: No evidence of appendicitis. Intraperitoneal space: Trace of free fluid in the pelvis. Vasculature: Moderate atherosclerotic calcified plaques of the abdominal aorta and iliac arteries. Lymph nodes: Unremarkable. No enlarged lymph nodes. Urinary bladder: Bladder is collapsed, Acosta in place. Tiny subcutaneous intraluminal foci of air, likely secondary to Acosta placement. Reproductive: Unremarkable as visualized. Bones/joints: Chronic multilevel degenerative changes of the thoracolumbar spine with endplate sclerosis, space disc narrowing, and associated vacuum phenomena. No acute fractures, normal alignment. No marked central canal stenosis. Soft tissues: Small fat containing umbilical hernia. CT/[place] [id number] IMPRESSION: 1. Cardiomegaly, with bilateral pleural effusions and compressive atelectasis, and associated with multifocal ground-glass to patchy opacities. Multifocal pneumonia can not be ruled out. 2. Dilated pulmonary artery which can be seen with pulmonary arterial hypertension, and right paratracheal lymphadenopathy. IMPRESSION: 1. Mild pericholecystic fluid around the gallbladder, correlate with right upper quadrant ultrasound. 2. Diverticulosis without any evidence of acute diverticulitis. COMMENTS: Consistent with the [employer]'s Incidental Findings Committee white paper (J Am Jelena Radiol 2018): Any incidental renal lesion less than 1 cm or classified as too small to characterize, or any incidental cystic renal lesion characterized as simple-appearing, is likely benign. No follow-up imaging is recommended for these lesions per consensus recommendations based on imaging criteria.
[2023-10-02] MEDS: piperacillin-tazobactam 3.375 GM in sodium chloride 0.9% (plus) 50 ML IV (11:22)
[2023-10-02] MEDS: azithromycin 250 mg Tablet 500 MG PO (11:22)
[2023-10-02 11:37] LABS: Vitamin B12 1529 pg/mL (232-1245)
[2023-10-02 12:16] LABS: Urine Creatinine 47 mg/dL (28-217)
[2023-10-02 13:17] LABS: D Dimer 1.22 ug/mLFEU (0-0.59)
[2023-10-02 13:51] LABS: Eosinophil Urine No Eosinophils Seen; Urine Eosinophil Count 0 (0-0)
[2023-10-02] MEDS: methylPREDNISolone sod succ 40 mg/mL INJ IVP ×2 (15:28→21:26)
[2023-10-02] MEDS: acetaminophen 325 mg Tablet 650 MG PO (15:36)
--- NOTE | 2023-10-02 16:27 | P.PN_ITS ---
Subjective 2 Subjective: Hospital course, labs appreciated. Seen with family numbers at bedside in ICU. Currently on 6 L of oxygen supplementation saturating more than 90%. Patient having episodes of cough while eating. Has remained hemodynamically stable and afebrile. Patient able to have complete conversation but does have occasional episode of cough. Vitals/I&O/Wt Last Vital Signs Temp 98.3 F 10/02/23 12:00 Pulse 58 L 10/02/23 15:02 Resp 23 H 10/02/23 14:00 BP 116/50 10/02/23 14:00 Pulse Ox 91 10/02/23 14:00 O2 Del Method High Flow Nasal Cannula 10/02/23 13:07 O2 Flow Rate 6 10/02/23 13:07 10/02/23 10/02/23 10/02/23 06:59 14:59 22:59 Intake Total 50 / 890 170 / 170 50 / 220 Output Total 450 / 950 Balance -400 / -60 170 / 170 50 / 220 Weight last 48 hrs Weight 49.498 kg Weight 47.174 kg Physical Exam 2 Urinary Catheter Management: Acosta: Cath Placed During This Visit: yes Reason for Continuing Indwelling Catheter: Accurate Measurement of Urinary Output in Critically Ill Patients Urinary Catheter Date of Insertion: 10/01/23 Urinary Catheter Time of Insertion: 10:16 Data 10/02/23 04:25 10/02/23 04:25 Micro: Microbiology 10/01/23 14:29 Blood Culture - Preliminary Blood NEGATIVE TO DATE 10/01/23 14:20 Blood Culture - Preliminary Blood NEGATIVE TO DATE 10/02/23 11:41 Bacterial Antigens - Final Urine Kidney 10/02/23 11:41 Legionella Urinary Antigen - Final Unknown Source A&P Assessment and plan (1) Acute hypoxic respiratory failure: Most likely a combination of congestive heart failure along with community- acquired pneumonia with high risk of aspiration pneumonia. Wean oxygen supplementation keeping saturation over 90%. Pulmicort twice daily, DuoNeb every 6 hour. Respiratory viral panel negative. IV steroids with Solu-Medrol 40 mg every [address] chest without contrast. Concerns for pleural fluid on examination mostly on the right side. Will confirm with CT chest if needed will plan for ultrasound-guided thoracentesis to rule out empyema. Dysphagia level 5 diet. Speech therapy evaluation and modified barium swallow before advancing diet. Aggressive pulmonary toilet with I-S and Acapella. Out of bed to chair. (2) Congestive heart failure: History of aortic valve replacement. Echocardiogram done shows an EF of 55 to 60% with grade 3 diastolic dysfunction, moderate MR, moderate AI, moderate TR with severe pulmonary hypertension. 40 mg IV Lasix 3 times daily. Strict input charting, daily weights. Acosta catheterization. Fluid restriction up to 1500 cc. D-dimer mildly elevated. But given severe pulmonary hypertension moderate TR without RV dysfunction more concerns for COPD. For now we will hold off on doing CTA given renal dysfunction. Repeat D-dimer. If respiratory failure does not improve we will plan on doing VQ scan. (3) Community acquired pneumonia: Follow-up sputum culture, MRSA swab. Sputum culture still not collected. Continue with IV vancomycin and Zosyn as per creatinine clearance for now. If MRSA swab negative will discontinue vancomycin. Otherwise treatment as #1. (4) Acute exacerbation of chronic obstructive airways disease: (5) Anemia: Last hemoglobin in June 2012. Currently in high 9s. Does have history of hemoglobin in the 9 before. Cannot rule out slow GI bleed given history of NSAID at home. Continue with Protonix twice daily. Awaiting stool for occult blood. Monitor hemoglobin daily. Transfuse if below 7. (6) Acute kidney injury: Baseline creatinine around 1.5. Currently 2. Worsening. Medical reconciliation done for nephrotoxic drugs. Hold off any further NSAIDs and ARB for now. Aggressive IV diuresis as above. Cannot rule out cardiorenal syndrome. Check urine lites, urine creatinine, urine eosinophils. Will repeat BMP in evening. (7) Transaminitis: AST 234, ALT 108. Elevation my be secondary to sepsis pneumonia or even congestion from CHF CMP in am (8) Elevated troponin: Likely type II, denies chest pain currently. Troponin series ordered, monitor. Echocardiogram as above (9) Atrial fibrillation: Known history of afib on chronic anticoagulation of Eliquis. Continue to hold Eliquis due to anemia, place on Sub q heparin. If hemoglobin remained stable within next 24 hours will restart Eliquis and monitor. Hold propranolol for now. (10) History of aortic valve replacement: History of aortic valve replacement in 2019. Appreciate echocardiogram. Plan As per family patient was recently started on Klonopin 0.5 twice daily for possible Parkinson's after which she has had more frequent episodes of fall and stuttering. Switch to 0.5 nightly as needed for insomnia. Full code currently Heparin for DVT prophylaxis Protonix will be sufficient for PUD prophylaxis [facility]. Attestations 2 Medical Necessity Statement*: Requires further hospitalization for management of hypoxic respiratory failure in setting COPD exacerbation aspiration pneumonia congestive heart failure in a patient with history of aortic valve replacement, CASPER on CKD Diagnoses Acute hypoxic respiratory failure J96.01 Congestive heart failure I50.9 Community acquired pneumonia J18.9 Acute exacerbation of chronic obstructive airways disease J44.1 Anemia D64.9 Acute kidney injury N17.9 Transaminitis R74.01 Elevated troponin R79.89 Atrial fibrillation I48.91 History of aortic valve replacement Z95.2
[2023-10-02 17:48] LABS: Blood Urea Nitrogen 71 mg/dL (8-23); Carbon Dioxide 23 mmol/L (22-29); Chloride 102 mmol/L (98-107); Creatinine Clr Calc Pharmacy 14.8744; Glucose 168 mg/dL (65-115); Osmolality Calculated 315 mOsm/kg (285-295); Sodium 140 mmol/L (136-145)
[2023-10-02 17:53] LABS: Anion Gap 18.7 (5-19); Potassium 3.7 mmol/L (3.5-5.1)
[2023-10-03] VITALS (14 sets, daily range): BP systolic 116–164; BP diastolic 55–72; PULSE 68–110; RESP 16–20; TEMP 36.3–36.7; O2SAT 91–94
[2023-10-03] MEDS: piperacillin-tazobactam 3.375 GM in sodium chloride 0.9% (plus) 50 ML IV ×3 (00:08→23:14)
[2023-10-03] MEDS: ipratropium-albuterol 3 mL Neb INHALATION ×4 (01:37→20:27)
[2023-10-03 02:56] LABS: Basophils % 0.1 %; Hematocrit 31.5 % (36-47); Lymphocytes # 0.7 10^3/uL (0.8-4.8); Lymphocytes % 5.3 %; Mean Corpuscular HGB Conc 31.7 g/dL (30-55); Mean Corpuscular Volume 94.6 fl (85-98); Mean Platelet Volume 10.3 fL (7.4-10.4); Monocytes # 0.3 10^3/uL (0.2-0.9); Neutrophils # 11.49 10^3/uL (1.8-7.7); Nucleated Red Blood Cells % 0 %; Platelet Count 211 10^3/cmm (157-399); Red Blood Count 3.33 10^6/uL (3.85-5.65); Red Cell Distribution Width 14.3 % (12.1-15.1); White Blood Count 12.48 10^3/uL (3.29-11.43)
[2023-10-03 03:19] LABS: Alanine Aminotransferase 87 U/L (0-33); Albumin Level 3.5 g/dL (3.5-5.2); Alkaline Phosphatase 84 U/L (35-105); Aspartate Amino Transferase 94 U/L (0-32); Blood Urea Nitrogen 69 mg/dL (8-23); Calcium 8.9 mg/dL (8.5-10.5); Carbon Dioxide 26 mmol/L (22-29); Chloride 101 mmol/L (98-107); Creatinine Clr Calc Pharmacy 15.5827; Estmated Average Glucose 114; Globulin 3.1 g/dL (1.3-4.6); Glucose 191 mg/dL (65-115); Hemoglobin A1C 5.6 % (4.0-6.0); Osmolality Calculated 315 mOsm/kg (285-295); Sodium 140 mmol/L (136-145); Total Bilirubin 0.6 mg/dL (0.15-1.2); Total Protein 6.6 g/dL (6.6-8.7)
[2023-10-03 03:25] LABS: Chol HDL Ratio 3.04 mg/dL (0.0-4.40); Cholesterol 161 mg/dL (0-200); HDL Cholesterol 53 mg/dL (60-100); LDL Cholesterol Calculated 85 mg/dL (50-129); Magnesium 2.4 mg/dL (1.7-2.3); Triglycerides 116 mg/dL (0-150); VLDL Cholestrol Calculation 23 mg/dL (0-30)
[2023-10-03 03:32] LABS: Folate Level 9.6 ng/mL (4.8-37.3)
[2023-10-03] MEDS: potassium chloride ER 20 mEq Tablet 40 MEQ PO ×2 (05:18→12:21)
[2023-10-03] MEDS: budesonide 0.5 mg/2 mL Neb INHALATION ×2 (08:31→20:27)
[2023-10-03] MEDS: azithromycin 250 mg Tablet 500 MG PO (09:57)
[2023-10-03] MEDS: methylPREDNISolone sod succ 40 mg/mL INJ IVP ×3 (09:57→20:49)
[2023-10-03] MEDS: FUROsemide 10 mg/mL SDV 4mL 40 MG IVP ×3 (09:57→20:49)
[2023-10-03] MEDS: pantoprazole 40 mg SDV IVP ×2 (09:57→20:48)
[2023-10-03] MEDS: HYDROcodone-acetaminophen 5-325 mg Tablet 1 TAB PO ×2 (09:57→17:59)
[2023-10-03] MEDS: levothyroxine 50 mcg Tablet PO (09:57)
[2023-10-03] MEDS: heparin 5,000 unit/mL INJ 1 mL 5000 UNIT SUBCUT (09:58)
[2023-10-03] MEDS: vancomycin 750 MG in sodium chloride 0.9% 250 ML 250 MG IV (10:00)
--- NOTE | 2023-10-03 11:00 | P.PN_ITS ---
Subjective 2 Subjective: Overnight patient had episode of confusion. Seen with multiple family numbers at bedside today. Patient is awake and alert and able to have complete conversation. She remembers of confusion overnight. States she was not able to sleep. Denies any nausea, vomiting, headache. States breathing is better. Currently on 6 L of oxygen supplementation. Blood work appreciated. Mild hypokalemia. Vitals/I&O/Wt Last Vital Signs Temp 98.1 F 10/03/23 08:11 Pulse 88 10/03/23 08:44 Resp 20 H 10/03/23 08:11 BP 149/56 10/03/23 08:11 Pulse Ox 91 10/03/23 08:11 O2 Del Method Nasal Cannula 10/03/23 08:11 O2 Flow Rate 5 10/03/23 08:00 10/02/23 10/03/23 10/03/23 22:59 06:59 14:59 Intake Total 290 / 460 200 / 660 Output Total 700 / 700 1000 / 1700 Balance -410 / -240 -800 / -1040 Weight last 48 hrs Weight 49.668 kg Weight 49.668 kg Weight 49.498 kg Physical Exam 2 Narrative: General: No acute distress, AO x 2-3, extremely conversant, tremors present HEENT: PERRLA, pupils bilaterally equal and reactive Chest: Bilateral bronchial breath sounds with occasional rhonchi, coarse crackles present in right lower zone, decreased air entry in right lower zone CVS: S1-S2 regular, early diastolic murmur at aortic region radiating to apex, no tachycardia, no gallops, no rubs Abdomen: Soft, nontender, no organomegaly, bowel sounds present Neuro: No focal deficits, no facial deformity, AO x3, power 5/5 in all limbs Urinary Catheter Management: Acosta: Cath Placed During This Visit: yes Reason for Continuing Indwelling Catheter: Other Urinary Catheter Date of Insertion: 10/01/23 Urinary Catheter Time of Insertion: 10:16 Data 10/03/23 02:01 10/03/23 02:01 Micro: Microbiology 10/01/23 14:29 Blood Culture - Preliminary Blood NEGATIVE TO DATE 10/01/23 14:20 Blood Culture - Preliminary Blood NEGATIVE TO DATE 10/02/23 11:41 Bacterial Antigens - Final Urine Kidney 10/02/23 11:41 Legionella Urinary Antigen - Final Unknown Source A&P Assessment and plan (1) Acute hypoxic respiratory failure: Most likely a combination of congestive heart failure along with community- acquired pneumonia with high risk of aspiration pneumonia. Wean oxygen supplementation keeping saturation over 90%. Pulmicort twice daily, DuoNeb every 6 hour. Respiratory viral panel negative. IV steroids with Solu-Medrol 40 mg every [address] chest without contrast. Concerns for pleural fluid on examination mostly on the right side. Will confirm with CT chest if needed will plan for ultrasound-guided thoracentesis to rule out empyema. Dysphagia level 5 diet. Speech therapy evaluation and modified barium swallow before advancing diet. Aggressive pulmonary toilet with I-S and Acapella. Out of bed to chair. (2) Congestive heart failure: History of aortic valve replacement. Echocardiogram done shows an EF of 55 to 60% with grade 3 diastolic dysfunction, moderate MR, moderate AI, moderate TR with severe pulmonary hypertension. 40 mg IV Lasix 3 times daily. Strict input charting, daily weights. Acosta catheterization. Fluid restriction up to 1500 cc. D-dimer mildly elevated. But given severe pulmonary hypertension moderate TR without RV dysfunction more concerns for COPD. For now we will hold off on doing CTA given renal dysfunction. Repeat D-dimer. If respiratory failure does not improve we will plan on doing VQ scan. (3) Community acquired pneumonia: Follow-up sputum culture, MRSA swab. Sputum culture still not collected. Continue with IV vancomycin and Zosyn as per creatinine clearance for now. If MRSA swab negative will discontinue vancomycin. Otherwise treatment as #1. (4) Acute exacerbation of chronic obstructive airways disease: (5) Anemia: Last hemoglobin in June 2012. Currently in high 9s. Does have history of hemoglobin in the 9 before. Cannot rule out slow GI bleed given history of NSAID at home. Continue with Protonix twice daily. Awaiting stool for occult blood. Monitor hemoglobin daily. Transfuse if below 7. (6) Acute kidney injury: Baseline creatinine around 1.5. Currently 2. Worsening. Medical reconciliation done for nephrotoxic drugs. Hold off any further NSAIDs and ARB for now. Aggressive IV diuresis as above. Cannot rule out cardiorenal syndrome. Check urine lites, urine creatinine, urine eosinophils. Will repeat BMP in evening. (7) Transaminitis: AST 234, ALT 108. Elevation my be secondary to sepsis pneumonia or even congestion from CHF CMP in am (8) Elevated troponin: Likely type II, denies chest pain currently. Troponin series ordered, monitor. Echocardiogram as above (9) Atrial fibrillation: Known history of afib on chronic anticoagulation of Eliquis. Continue to hold Eliquis due to anemia, place on Sub q heparin. If hemoglobin remained stable within next 24 hours will restart Eliquis and monitor. Hold propranolol for now. (10) History of aortic valve replacement: History of aortic valve replacement in 2019. Appreciate echocardiogram. Plan As per family patient was recently started on Klonopin 0.5 twice daily for possible Parkinson's after which she has had more frequent episodes of fall and stuttering. Switch to 0.5 nightly as needed for insomnia. Plan for the day: Continue with Solu-Medrol 40 mg IV 3 times daily. Will plan to wean from tomorrow. Ox supplementation keeping saturation over 90%. Keep NPO. Plan for speech therapy and modified barium swallow in next 24 hours. Advance diet accordingly. Plan for chest ultrasound for possible thoracentesis tomorrow. Continue with aggressive IV diuresis with Lasix 40 mg IV 3 times daily. Got 40 mg of potassium in morning. Will add 40 mg more. Follow-up cultures, MRSA swab results. Renal function stable. Creatinine slightly improving to 2.1, BUN slightly improving to 6.9. Continue to monitor with aggressive diuresis. Repeat BMP in evening. Liver functions improving. Transaminitis resolving. Transaminitis most likely in setting of hepatic congestion. Appreciate echocardiogram results. Shows EF of 55 to 60%, grade 3 diastolic dysfunction, moderate MR, moderate AI, mild AAS, moderate TR with moderate pulmonary hypertension and dilated IVC. Continue with Klonopin 0.5 mg p.o. as needed at bedtime. Discussed in detail with RN at bedside. Will plan to give Klonopin at night. Care discussed in detail with patient's family members at bedside. Full code currently Heparin for DVT prophylaxis Protonix will be sufficient for PUD prophylaxis [facility] Attestations 2 Medical Necessity Statement*: Requires further hospitalization for management of hypoxic respiratory failure in setting of aspiration pneumonia, congestive heart failure in a patient with history of CKD currently in CAS[place] while diet is advanced as per speech evaluation. Diagnoses Acute hypoxic respiratory failure J96.01 Congestive heart failure I50.9 Community acquired pneumonia J18.9 Acute exacerbation of chronic obstructive airways disease J44.1 Anemia D64.9 Acute kidney injury N17.9 Transaminitis R74.01 Elevated troponin R79.89 Atrial fibrillation I48.91 History of aortic valve replacement Z95.2
[2023-10-03 15:17] LABS: Blood Urea Nitrogen 65 mg/dL (8-23); Calcium 8.5 mg/dL (8.5-10.5); Carbon Dioxide 25 mmol/L (22-29); Chloride 103 mmol/L (98-107); Creatinine Clr Calc Pharmacy 17.2821; Glucose 239 mg/dL (65-115); Osmolality Calculated 318 mOsm/kg (285-295); Sodium 141 mmol/L (136-145)
[2023-10-03 15:27] LABS: Anion Gap 16.9 (5-19); Potassium 3.9 mmol/L (3.5-5.1)
[2023-10-03] MEDS: enoxaparin 60 mg/0.6 mL Syringe 50 MG SUBCUT (17:59)
[2023-10-03] MEDS: CLONazepam 0.5 mg Tablet PO (20:49)
[2023-10-04] VITALS (9 sets, daily range): BP systolic 144–193; BP diastolic 62–73; PULSE 67–105; RESP 16–20; TEMP 36.4–36.9; O2SAT 92–97
[2023-10-04 05:41] LABS: Basophils % 0.1 %; Hematocrit 31.8 % (36-47); Lymphocytes # 0.4 10^3/uL (0.8-4.8); Mean Corpuscular HGB Conc 32.4 g/dL (30-55); Mean Corpuscular Hemoglobin 30.4 pg (27-33); Mean Corpuscular Volume 93.8 fl (85-98); Mean Platelet Volume 9.9 fL (7.4-10.4); Monocytes # 0.3 10^3/uL (0.2-0.9); Monocytes % 3.2 %; Neutrophils # 7.82 10^3/uL (1.8-7.7); Neutrophils % 90.5 %; Nucleated Red Blood Cells % 0.2 %; Platelet Count 226 10^3/cmm (157-399); Red Blood Count 3.39 10^6/uL (3.85-5.65); Red Cell Distribution Width 14.3 % (12.1-15.1); White Blood Count 8.64 10^3/uL (3.29-11.43)
[2023-10-04 05:50] LABS: Alanine Aminotransferase 121 U/L (0-33); Albumin Level 3.4 g/dL (3.5-5.2); Alkaline Phosphatase 81 U/L (35-105); Anion Gap 12.1 (5-19); Aspartate Amino Transferase 124 U/L (0-32); Blood Urea Nitrogen 65 mg/dL (8-23); Calcium 9.1 mg/dL (8.5-10.5); Carbon Dioxide 31 mmol/L (22-29); Chloride 105 mmol/L (98-107); Globulin 2.9 g/dL (1.3-4.6); Glucose 254 mg/dL (65-115); Osmolality Calculated 327 mOsm/kg (285-295); Potassium 3.1 mmol/L (3.5-5.1); Sodium 145 mmol/L (136-145); Total Bilirubin 0.6 mg/dL (0.15-1.2); Total Protein 6.3 g/dL (6.6-8.7)
[2023-10-04 06:02] LABS: Magnesium 2.3 mg/dL (1.7-2.3)
--- NOTE | 2023-10-04 08:00 | FL_ITS ---
WS: [id number] MODIFIED BARIUM SWALLOW TECHNIQUE: Modified barium swallow with speech therapy using multiple consistencies. FLUOROSCOPY TIME: 2min [id number] # of spot films: 0 CLINICAL INFORMATION: Oropharyngeal dysphagia COMPARISON: None. FINDINGS: Multiple consistencies utilized. No evidence of aspiration or penetration. Delayed bolus formation an d oropharyngeal phase. Early spillage. Temporary delayed transit of the barium tablet in the mid upper esophagus which cleared with addition al fluids. Mild esophageal dysmotility. No visualized stricture. IMPRESSION: 1. No evidence of brandt aspiration or penetration. 2. Somewhat delayed bolus formation and early spillage. 3. Mild esophageal dysmotility.
[2023-10-04] MEDS: ipratropium-albuterol 3 mL Neb INHALATION ×2 (08:30→19:27)
[2023-10-04] MEDS: budesonide 0.5 mg/2 mL Neb INHALATION ×2 (08:30→19:27)
[2023-10-04] MEDS: azithromycin 250 mg Tablet 500 MG PO (09:36)
[2023-10-04] MEDS: levothyroxine 50 mcg Tablet PO (09:36)
[2023-10-04] MEDS: HYDROcodone-acetaminophen 5-325 mg Tablet 1 TAB PO ×2 (09:36→17:34)
--- NOTE | 2023-10-04 10:10 | PC.CHAP ---
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 [] Patient/Family/Request visit [] Outpatient visit [] Follow-up visit [] Physician referral [] Code/Alert [X] Routine visit [] Staff referral [] Actively dying [X] Patient sleeping [] Family support [] [] Out of room [] Palliative care [] [] Receiving care in room [] Pre-surgical visit [] Trauma [] Long length of stay [] ICU visit [] Other: Relational/Emotional Strength [] Patient feels connected with others/family/visitors/staff [] Distress [] Loneliness/isolation [] Abandonment Spirituality of Patient [] Person of Judie [] Attends Oriental Orthodox of their Judie [] Believes in Prayer [] Reads Bible or Confucianist materials [] There are Spiritual issues to be addressed [place] Blind[employer]ch Interventions [X] Prayer [] Active listening [] Non-anxious presence [] Spiritual/emotional support [] Crisis/trauma care [] Spiritual counseling [] Bereavement support [] Provided bereavement packet [] Provided Bible/devotional materials [] Provided toy/stuffed animal, coloring book to patient or family member [] Provided Communion [] Anointing/[place] [] Salvation [] Completed spiritual assessment [] Other: Impact on Illness or Injury [] Angry [] Fearful [] Anxious [] Often cries [] Exhaustion [] Unable to work [] Unable to attend catholic [] Unable to walk/stand [] Unable to read [] Unable to drive [] Unable to eat/drink [] Unable to sleep [] Unable to be with family [] Patient intubated [] Other: Summary Time spent with patient
--- NOTE | 2023-10-04 10:10 | PC.SOCIAL ---
IMM Update pg 2 of IMM updated and reviewed w/ patient. Copy provided and copy dated, initialed and placed in chart.
--- NOTE | 2023-10-04 10:58 | PC.NURSE ---
Patient gone for swallow study medis to be given when she returns
[2023-10-04] MEDS: pantoprazole 40 mg SDV IVP ×2 (12:14→20:56)
[2023-10-04] MEDS: methylPREDNISolone sod succ 40 mg/mL INJ IVP ×3 (12:14→21:08)
[2023-10-04] MEDS: FUROsemide 10 mg/mL SDV 4mL 40 MG IVP ×3 (12:15→21:08)
[2023-10-04] MEDS: piperacillin-tazobactam 3.375 GM in sodium chloride 0.9% (plus) 50 ML IV ×2 (13:09→23:20)
[2023-10-04 15:25] LABS: Methicillin-Resist S.aureu PCR NOT DETECTED (NOT DETECTED)
--- NOTE | 2023-10-04 15:26 | P.PN_ITS ---
Subjective 2 Subjective: No acute overnight events noted. She is doing better today Vitals/I&O/Wt Last Vital Signs Temp 98.1 F 10/04/23 12:00 Pulse 69 10/04/23 15:00 Resp 16 10/04/23 15:00 BP 144/62 10/04/23 12:00 Pulse Ox 94 10/04/23 15:00 O2 Del Method High Flow Nasal Cannula 10/04/23 15:00 O2 Flow Rate 5 10/04/23 15:00 10/04/23 10/04/23 10/04/23 06:59 14:59 22:59 Intake Total 50 / 830 Output Total 1700 / 3050 Balance -1650 / -2220 Weight last 48 hrs Weight 49.442 kg Weight 50.258 kg Weight 49.668 kg Weight 49.668 kg Physical Exam 2 Narrative: She is alert awake oriented x 3 Chest bilateral crackles present Cardiovascular normal heart sounds Abdomen NAD Extremities 1+ bilateral edema present Urinary Catheter Management: Acosta: Cath Placed During This Visit: yes Reason for Continuing Indwelling Catheter: Other Urinary Catheter Date of Insertion: 10/01/23 Urinary Catheter Time of Insertion: 10:16 Data 10/04/23 03:49 10/04/23 03:49 Micro: Microbiology 10/04/23 03:00 Occult Blood (FIT) - Final Stool Routine Collection A&P Assessment and plan (1) Acute hypoxic respiratory failure: (2) Anemia: (3) Elevated troponin: (4) Transaminitis: (5) Community acquired pneumonia: (6) Acute exacerbation of chronic obstructive airways disease: (7) Congestive heart failure: Plan (1) Acute hypoxic respiratory failure: Most likely a combination of congestive heart failure along with community- acquired pneumonia with high risk of aspiration pneumonia. Wean oxygen supplementation keeping saturation over 90%. Pulmicort twice daily, DuoNeb every 6 hour. IV steroids with Solu-Medrol 40 mg every 8 hours. (2) Congestive heart failure: 40 mg IV Lasix 3 times daily. Strict input charting, daily weights. Acosta catheterization. Fluid restriction up to 1500 cc. (3) Community acquired pneumonia: Follow-up sputum culture, MRSA swab. Sputum culture still not collected. Continue with IV vancomycin and Zosyn as per creatinine clearance for now. (4) Acute exacerbation of chronic obstructive airways disease: (5) Anemia: Stable (6) Acute kidney injury: Resolved Will repeat BMP in am (7) Atrial fibrillation: Known history of afib on chronic anticoagulation of Eliquis. Restart p.o. Eliquis as H&H is stable Plan for chest ultrasound for possible thoracentesis. Full code currently She is on p.o. Eliquis will continue same for DVT prophylaxis. Protonix will be sufficient for PUD prophylaxis Clear liquid diet and advance as tolerated Attestations 2 Medical Necessity Statement*: She needs continued hospitalization for hypoxic respiratory failure management and ultrasound-guided thoracentesis to rule out empyema Time Spent in Patient Care: 30 minutes Coding Level of Care Code Acute Code for Chg Fwd Diagnoses Acute hypoxic respiratory failure J96.01 Anemia D64.9 Elevated troponin R79.89 Transaminitis R74.01 Community acquired pneumonia J18.9 Acute exacerbation of chronic obstructive airways disease J44.1 Congestive heart failure I50.9 Time Spent (min) 30
[2023-10-04 16:30] LABS: Partial Thromboplastin Time 35.1 SECONDS (23.9-36.7)
--- NOTE | 2023-10-04 20:27 | PC.NURSE ---
NON ADMIN CAROLYNN contacted Dr Osborn concerning evening scheduled administration of eliquis. reported to doctor that fecal occult blood stool sample had come back positive. Doctor Anurag gave order for carolynn to be held for now.
[2023-10-04] MEDS: CLONazepam 0.5 mg Tablet PO (20:53)
[2023-10-04] MEDS: potassium chloride ER 20 mEq Tablet 40 MEQ PO (21:09)
[2023-10-05] VITALS (10 sets, daily range): BP systolic 150–185; BP diastolic 54–63; PULSE 70–80; RESP 16–18; TEMP 36.6–37; O2SAT 91–97
[2023-10-05] MEDS: ipratropium-albuterol 3 mL Neb INHALATION ×4 (02:45→19:47)
[2023-10-05 05:51] LABS: Anion Gap 16.3 (5-19); Blood Urea Nitrogen 55 mg/dL (8-23); Calcium 9.3 mg/dL (8.5-10.5); Carbon Dioxide 32 mmol/L (22-29); Chloride 102 mmol/L (98-107); Creatinine Clr Calc Pharmacy 19.9792; Glucose 226 mg/dL (65-115); Osmolality Calculated 326 mOsm/kg (285-295); Potassium 3.3 mmol/L (3.5-5.1); Sodium 147 mmol/L (136-145)
[2023-10-05 06:01] LABS: Magnesium 2.3 mg/dL (1.7-2.3)
--- NOTE | 2023-10-05 06:18 | PC.NURSE ---
REPLACEMENT POTASSIUM contacted [facility] hospitalist Dr Seymour r/t patients serum potassium. AM labs from today had shown potassium to be 3.1. editorial writer had scheduled IVP 40mg lasix to administer, informed Dr Seymour, and received order for 40 meq po replacement and recheck with AM labs.
[2023-10-05] MEDS: budesonide 0.5 mg/2 mL Neb INHALATION ×2 (07:50→19:47)
[2023-10-05 08:19] LABS: Basophils % 0.1 %; Hematocrit 32.8 % (36-47); Lymphocytes # 0.5 10^3/uL (0.8-4.8); Lymphocytes % 6.1 %; Mean Corpuscular HGB Conc 32.3 g/dL (30-55); Mean Corpuscular Hemoglobin 30.3 pg (27-33); Mean Corpuscular Volume 93.7 fl (85-98); Mean Platelet Volume 9.8 fL (7.4-10.4); Monocytes # 0.3 10^3/uL (0.2-0.9); Monocytes % 3.4 %; Neutrophils # 7.13 10^3/uL (1.8-7.7); Neutrophils % 88.9 %; Nucleated Red Blood Cells % 0.2 %; Platelet Count 240 10^3/cmm (157-399); Red Cell Distribution Width 14.5 % (12.1-15.1); White Blood Count 8.02 10^3/uL (3.29-11.43)
[2023-10-05] MEDS: pantoprazole 40 mg SDV IVP ×2 (09:06→20:24)
[2023-10-05] MEDS: FUROsemide 10 mg/mL SDV 4mL 40 MG IVP ×3 (09:06→20:24)
[2023-10-05] MEDS: azithromycin 250 mg Tablet 500 MG PO (09:07)
[2023-10-05] MEDS: levothyroxine 50 mcg Tablet PO (09:07)
[2023-10-05] MEDS: HYDROcodone-acetaminophen 5-325 mg Tablet 1 TAB PO ×2 (09:07→17:29)
[2023-10-05 09:08] LABS: INR 1.07 (0.8-1.2)
[2023-10-05] MEDS: methylPREDNISolone sod succ 40 mg/mL INJ IVP ×2 (09:08→17:30)
[2023-10-05 09:11] LABS: Vancomycin Trough 7.3 ug/mL (10-15)
[2023-10-05] MEDS: vancomycin 750 MG in sodium chloride 0.9% 250 ML 250 MG IV (10:17)
--- NOTE | 2023-10-05 11:00 | US_ITS ---
WS: [id number] ULTRASOUND-GUIDED THORACENTESIS CLINICAL INFORMATION: right pleural effuion COMPARISON: CT 10/02/2023 PROCEDURE: Informed consent: The risks, benefits, and alternatives of the procedure were discussed with the amber ent. Verbal and written consent was obtained. Timeout: A timeout was performed to confirm the correct patient, procedure, and site. Site: RIGHT Preparation: A suitable skin site was identified. The patient was prepped and draped in usual sterile fashion. Lidocaine 1% was used for local anesthesia. Catheter: 4 [place] One-Step catheter. Fluid Volume: 400 ml Color: Bloody serous Fluid sent for requested diagnostic tests. Complications: No pneumothorax in the postthoracentesis radiograph IMPRESSION: Uncomplicated ultrasound-guided RIGHT thoracentesis.
--- NOTE | 2023-10-05 11:08 | XR_ITS ---
WS: [id number] CHEST XRAY TECHNIQUE: Portable chest. CLINICAL INFORMATION: Thoracent. COMPARISON: CT 10/02/2023 FINDINGS: Heart: Cardiomegaly. Sternotomy. Aortic calcification. Lungs: Improved RIGHT pleural effusion post thoracentesis. Persistent volume loss RIGHT lower lobe wi th compressive atelectasis. No pneumothorax. Small LEFT pleural effusion. Bones: Osteopenia. IMPRESSION: Improved RIGHT pleural effusion post thoracentesis. Persistent volume loss RIGHT lower lobe with RIGH T basilar atelectasis. No pneumothorax.
[2023-10-05] MEDS: piperacillin-tazobactam 3.375 GM in sodium chloride 0.9% (plus) 50 ML IV ×2 (11:32→23:20)
[2023-10-05 11:41] LABS: Mononuclear %, Pleural Fluid 81 %; Polynuclear Cells, Pleural % 19 %
[2023-10-05 11:42] LABS: Appearance, Pleural Fluid CLOUDY (CLEAR); Color, Pleural Fluid Amber (Pale Yellow)
[2023-10-05 11:43] LABS: PATH Referal YES
[2023-10-05 12:10] LABS: LDH Pleural Fluid 155 U/L
--- NOTE | 2023-10-05 13:31 | P.PN_ITS ---
Subjective 2 Subjective: No acute overnight events noted. She was having intermittent episodes of aggression yesterday and was started on 1 is to 1 observation. Medications: Reviewed: Yes Vitals/I&O/Wt Last Vital Signs Temp 98.0 F 10/05/23 08:00 Pulse 75 10/05/23 13:18 Resp 18 10/05/23 13:18 BP 185/63 10/05/23 08:00 Pulse Ox 94 10/05/23 13:18 O2 Del Method High Flow Nasal Cannula 10/05/23 13:18 O2 Flow Rate 4 10/05/23 13:18 10/04/23 10/05/23 10/05/23 22:59 06:59 14:59 Intake Total 290 / 290 50 / 340 120 / 120 Output Total 850 / 850 1400 / 2250 Balance -560 / -560 -1350 / -1910 120 / 120 Weight last 48 hrs Weight 48.353 kg Weight 49.442 kg Weight 50.258 kg Physical Exam 2 Narrative: She is alert awake oriented x 3 Chest bilateral crackles present Cardiovascular normal heart sounds Abdomen NAD Extremities 1+ bilateral edema present Urinary Catheter Management: Acosta: Cath Placed During This Visit: yes Reason for Continuing Indwelling Catheter: Other Urinary Catheter Date of Insertion: 10/01/23 Urinary Catheter Time of Insertion: 10:16 Data 10/05/23 04:31 10/05/23 04:31 A&P Assessment and plan (1) Acute hypoxic respiratory failure: (2) Anemia: (3) Elevated troponin: (4) Transaminitis: (5) Community acquired pneumonia: (6) Acute exacerbation of chronic obstructive airways disease: (7) Congestive heart failure: Plan (1) Acute hypoxic respiratory failure: Most likely a combination of congestive heart failure along with community- acquired pneumonia with high risk of aspiration pneumonia. Wean oxygen supplementation keeping saturation over 90%. Pulmicort twice daily, DuoNeb every 6 hour. IV steroids with Solu-Medrol 40 mg every 12 hours. (2) Congestive heart failure: 40 mg IV Lasix 3 times daily. Strict input charting, daily weights. Acosta catheterization. Fluid restriction up to 1500 cc. (3) Community acquired pneumonia: Continue with IV vancomycin and Zosyn as per creatinine clearance for now. Given bilateral pleural effusions right more than left, she had right-sided thoracentesis done today. Pleural fluid analysis sent for cell count pH glucose LDH Gram stain and culture ,will follow-up with the results. (4) Acute exacerbation of chronic obstructive airways disease: (5) Anemia: Stable (7) Atrial fibrillation: Known history of afib on chronic anticoagulation with Eliquis. Full code currently She is on p.o. Eliquis will continue same for DVT prophylaxis. Protonix will be sufficient for PUD prophylaxis Barium swallow study appreciated . clear liquid diet and advance as tolerated as per recommendations Attestations 2 Medical Necessity Statement*: She needs continued hospitalization for IV therapy with Lasix for congestive heart failure and bilateral pleural effusions. Right-sided thoracentesis done will follow-up with pleural fluid analysis to rule out empyema. She is hemodynamically stable Time Spent in Patient Care: 30 minutes Coding Level of Care Code Acute Code for Chg Fwd Diagnoses Acute hypoxic respiratory failure J96.01 Anemia D64.9 Elevated troponin R79.89 Transaminitis R74.01 Community acquired pneumonia J18.9 Acute exacerbation of chronic obstructive airways disease J44.1 Congestive heart failure I50.9 Time Spent (min) 30
[2023-10-05] MEDS: acetaminophen 325 mg Tablet 650 MG PO (14:30)
--- NOTE | 2023-10-05 15:02 | PC.NURSE ---
Notified Dr. Zimmerman of patient being dizzy and confused for a bit once up to wheel chair. BP 106/66, Heart rate 55 then up 84, O2 98% temp 97.9.
--- NOTE | 2023-10-05 16:17 | PC.NURSE ---
Notified Dr. Pascual patient in wheel chair and blood pressure manually was 85/50. Patient back in bed and it was 98/54
[2023-10-05] MEDS: apixaban 5 mg Tablet 2.5 MG PO (20:40)
[2023-10-06] VITALS (12 sets, daily range): BP systolic 151–183; BP diastolic 55–73; PULSE 53–76; RESP 15–18; TEMP 36.6–36.9; O2SAT 93–98
[2023-10-06] MEDS: budesonide 0.5 mg/2 mL Neb INHALATION ×2 (07:40→19:46)
[2023-10-06] MEDS: ipratropium-albuterol 3 mL Neb INHALATION ×3 (07:40→19:46)
--- NOTE | 2023-10-06 09:32 | PC.SOCIAL ---
IMM Update pg 2 of IMM updated and reviewed w/ patient. Copy provided and copy dated, initialed and placed in chart.
[2023-10-06] MEDS: methylPREDNISolone sod succ 40 mg/mL INJ IVP (09:51)
[2023-10-06] MEDS: vancomycin 750 MG in sodium chloride 0.9% 250 ML 250 MG IV (09:51)
[2023-10-06] MEDS: azithromycin 250 mg Tablet 500 MG PO (09:52)
[2023-10-06] MEDS: propranolol 20 mg Tablet 10 MG PO ×2 (09:52→16:30)
[2023-10-06] MEDS: FUROsemide 10 mg/mL SDV 4mL 40 MG IVP (09:53)
[2023-10-06] MEDS: levothyroxine 50 mcg Tablet PO (09:53)
[2023-10-06] MEDS: HYDROcodone-acetaminophen 5-325 mg Tablet 1 TAB PO ×2 (10:05→16:30)
[2023-10-06] MEDS: apixaban 5 mg Tablet 2.5 MG PO ×2 (10:05→20:44)
[2023-10-06] MEDS: potassium chloride ER 20 mEq Tablet 40 MEQ PO ×2 (10:05→15:45)
[2023-10-06] MEDS: pantoprazole 40 mg SDV IVP ×2 (10:06→20:43)
--- NOTE | 2023-10-06 10:50 | ECG_ITS ---
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 Measurements Intervals [place] Rate: 74 P: 68 MD: 116 QRS: 22 QRSD: 109 T: 146 QT: 381 QTc: 423 Interpretive Statements SINUS RHYTHM WITH SHORT MD INTERVAL INFERIOR MYOCARDIAL INFARCTION , PROBABLY OLD [40+ ms Q WAVE AND/OR ST/T ABNORMALITY IN II/aVF] MODERATE T-WAVE ABNORMALITY, CONSIDER ANTEROLATERAL ISCHEMIA [-0.1+ mV T-WAVE IN V3-V6] Compared to ECG 10/01/2023 11:40:14 Short MD interval now present Myocardial infarct finding now present T-wave abnormality now present Possible ischemia now present Electronically Signed On 10-06-2023 18:40:56 CDT by Maynor Gomes M.D. [email or web address]
[2023-10-06] MEDS: piperacillin-tazobactam 3.375 GM in sodium chloride 0.9% (plus) 50 ML IV ×2 (11:43→22:07)
--- NOTE | 2023-10-06 12:01 | PM.PN ---
Subjective Subjective: no acute overnight events noted. this morning she was found to have abib with RVR at 130's. denies any chest pain or SOB or dizziness. she seems very anxious during the interview. Medications: Reviewed: Yes Vitals/I&O/Wt Last Vital Signs Temp 98.3 F 10/06/23 11:44 Pulse 66 10/06/23 11:44 Resp 15 10/06/23 11:44 BP 157/55 10/06/23 11:44 Pulse Ox 95 10/06/23 11:44 O2 Del Method Nasal Cannula 10/06/23 11:44 O2 Flow Rate 3 10/06/23 08:00 10/05/23 10/06/23 10/06/23 22:59 06:59 14:59 Intake Total 500 / 860 50 / 910 250 / 250 Output Total 1450 / 1450 850 / 2300 Balance -950 / -590 -800 / -1390 250 / 250 Weight last 48 hrs Weight 47.741 kg Weight 48.353 kg Physical Exam Narrative: She is alert awake oriented x 3, anxious Chest bilateral crackles present Cardiovascular normal heart sounds Abdomen NAD Extremities 1+ bilateral edema present Urinary Catheter Management: Acosta: Cath Placed During This Visit: yes Reason for Continuing Indwelling Catheter: Other Urinary Catheter Date of Insertion: 10/01/23 Urinary Catheter Time of Insertion: 10:16 Data 10/05/23 04:31 10/05/23 04:31 EKG 1: My Interpretation: NSR at 74bpm A&P Assessment and plan (1) Acute hypoxic respiratory failure: (2) Anemia: (3) Elevated troponin: (4) Transaminitis: (5) Community acquired pneumonia: (6) Acute exacerbation of chronic obstructive airways disease: (7) Congestive heart failure: Plan (1) Acute hypoxic respiratory failure: Most likely a combination of congestive heart failure along with community-acquired pneumonia with high risk of aspiration pneumonia. Wean oxygen supplementation keeping saturation over 90%. Pulmicort twice daily, DuoNeb every 6 hour. IV steroids with Solu-Medrol 40 mg daily (2) Congestive heart failure: 40 mg IV Lasix daily Strict input charting, daily weights. Fluid restriction up to 1500 cc. (3) Community acquired pneumonia: Continue with IV vancomycin and Zosyn as per creatinine clearance for now. Given bilateral pleural effusions right more than left, she had right-sided s/p thoracentesis Pleural fluid analysis negative for empyema, will follow up on culture report. (4) Acute exacerbation of chronic obstructive airways disease: (5) Anemia: Stable (6) afib with RVR this morning- likely triggered by anxiey. restarted po propranolol bid and klonopin 0.5mg bid, now resolved. (7) Atrial fibrillation: Known history of afib on chronic anticoagulation with Eliquis. Full code currently She is on p.o. Eliquis will continue same for DVT prophylaxis. Protonix will be sufficient for PUD prophylaxis Barium swallow study appreciated . clear liquid diet and advance as tolerated as per recommendations Attestations Medical Necessity Statement*: She is hemodynamically stable and waiting to go home with home health services Time Spent in Patient Care: 20 minutes Coding Level of Care Code Acute Code for [facility] Fwd Diagnoses Acute hypoxic respiratory failure J96.01 Anemia D64.9 Elevated troponin R79.89 Transaminitis R74.01 Community acquired pneumonia J18.9 Acute exacerbation of chronic obstructive airways disease J44.1 Congestive heart failure I50.9 Time Spent (min) 20
[2023-10-07] VITALS (10 sets, daily range): BP systolic 152–197; BP diastolic 51–68; PULSE 54–66; RESP 15–18; TEMP 36.5–36.8; O2SAT 86–97
[2023-10-07] MEDS: hyDRALAzine 20 mg/mL INJ 1 mL 10 MG IVP (00:30)
[2023-10-07] MEDS: ipratropium-albuterol 3 mL Neb INHALATION ×2 (02:28→07:40)
[2023-10-07] MEDS: budesonide 0.5 mg/2 mL Neb INHALATION (07:40)
[2023-10-07] MEDS: HYDROcodone-acetaminophen 5-325 mg Tablet 1 TAB PO (08:36)
[2023-10-07] MEDS: levothyroxine 50 mcg Tablet PO (08:40)
[2023-10-07] MEDS: azithromycin 250 mg Tablet 500 MG PO (08:40)
[2023-10-07] MEDS: FUROsemide 10 mg/mL SDV 4mL 40 MG IVP (08:40)
[2023-10-07] MEDS: apixaban 5 mg Tablet 2.5 MG PO (08:40)
[2023-10-07] MEDS: methylPREDNISolone sod succ 40 mg/mL INJ IVP (08:40)
[2023-10-07] MEDS: propranolol 20 mg Tablet 10 MG PO (08:41)
[2023-10-07] MEDS: pantoprazole 40 mg SDV IVP (08:41)
[2023-10-07 09:45] LABS: Vancomycin Trough 15.5 ug/mL (10-15)
[2023-10-07] MEDS: vancomycin 750 MG in sodium chloride 0.9% 250 ML 250 MG IV (09:45)
[2023-10-07] MEDS: piperacillin-tazobactam 3.375 GM in sodium chloride 0.9% (plus) 50 ML IV (10:56)
--- NOTE | 2023-10-07 12:42 | PM.DCS ---
Discharge Providers Date of Admission: 10/01/23 08:38 Date of Discharge: October 07, 2023 Attending Provider at Admission: Johnnie Wooten MD Attending Provider at Discharge: Bijal Osborn MD Primary Care Provider: Jerry Xavier MD Diagnoses at Discharge Discharge Diagnosis (1) Acute hypoxic respiratory failure: Status: Acute (2) Anemia: Status: Acute (3) Elevated troponin: Status: Acute (4) Transaminitis: Status: Acute (5) Community acquired pneumonia: Status: Acute (6) Acute exacerbation of chronic obstructive airways disease: Status: Acute (7) Congestive heart failure: Status: Acute Reason for Visit Reason for Visit: Sob, Weakness Brief History: Lurdes Elena is a 83 year old female with past medical history of hypothyroidism, CAD, Parkinsons disease, rheumatoid arthritis, and arterial fibrillation on chronic anticoagulation of Eliquis, and a recent aortic aneurysm repair in 2019. Mrs. Elena presents to the emergency department today for chief complaint of weakness and shortness of breath, currently on 10L oxymask. About 3 days ago patient started feeling more short of breath and weak, today she felt her worst and on arrival to the emergency room her oxygen stat was noted to be about 70%, she is currently supplemented with 10L oxymask. She reports that she does wear 2L NC at baseline. She currently denies chest pain, nausea, vomiting, diarrhea. Reports low grade fevers, chills, fatigue, wheezing,and a moderate productive cough. She was transferred to ICU for COPD exacerbation with underlying pneumonia and CHF and acute hypoxic respiratory failure Hospital Course Hospital Course She was treated with supplemental oxygen IV vancomycin and Zosyn for community-acquired pneumonia. She was also found to have bilateral pleural effusions, and had thoracentesis done to rule out empyema. She had a During stay history of also had A-fib/flutter with RVR likely secondary to anxiety and was restarted on her home medication p.o. propranolol and p.o. Klonopin. She is asymptomatic and still in A-fib/flutter which is rate controlled. She also had a speech evaluation and was found to have no signs of aspiration. She is doing much better, shortness of breath resolved, not requiring supplemental oxygen and is ready to be discharged home. Physical Exam Narrative: She is alert awake oriented x 3, anxious Chest bilateral crackles present Cardiovascular normal heart sounds Abdomen NAD Extremities no edema present Urinary Catheter Management: Acosta: Cath Placed During This Visit: yes, but has since been removed by the nurse Reason for Continuing Indwelling Catheter: Decision to DC Catheter Urinary Catheter Date of Insertion: 10/01/23 Urinary Catheter Time of Insertion: 10:16 Date Urinary Catheter Removed: 10/07/23 Time Urinary Catheter Discontinued: 11:40 Discharge Data Studies Completed and Pending Completed Studies During Hospitalization Category Date Time Status CT chest abdomen pelvis [[place] [id number] Cat Scan 10/02/23 10:42 Completed ] Urgent [place] barium swallow modifd [id number] Routine Exams 10/04/23 08:00 Completed XR chest 1V portable [id number] Stat Exams 10/01/23 06:36 Completed XR chest 1V portable [id number] Stat Exams 10/05/23 11:08 Completed CV. echo complete* [id number] Routine Ultrasound 10/01/23 09:13 Completed US gall bladder [id number] Stat Ultrasound 10/01/23 07:45 Completed US thoracentesis [id number] Routine Ultrasound 10/05/23 11:00 Completed Pending at discharge Category Date Time Status Body Fluid Culture Routine Lab 10/05/23 11:05 Results Sputum Culture and Gram Stain Routine Lab 10/01/23 13:43 Uncollected Radiology Impressions Chest/Abdomen/Pelvis CT 10/02/23 10:42 IMPRESSION: 1. Cardiomegaly, with bilateral pleural effusions and compressive atelectasis, and associated with multifocal ground-glass to patchy opacities. Multifocal pneumonia can not be ruled out. 2. Dilated pulmonary artery which can be seen with pulmonary arterial hypertension, and right paratracheal lymphadenopathy. IMPRESSION: 1. Mild pericholecystic fluid around the gallbladder, correlate with right upper quadrant ultrasound. 2. Diverticulosis without any evidence of acute diverticulitis. COMMENTS: Consistent with the [employer]'s Incidental Findings Committee white paper (J Am Jelena Radiol 2018): Any incidental renal lesion less than 1 cm or classified as too small to characterize, or any incidental cystic renal lesion characterized as simple-appearing, is likely benign. No follow-up imaging is recommended for these lesions per consensus recommendations based on imaging criteria. Laboratory Results WBC 8.02 10^3/uL (3.29-11.43) 10/05/23 04:31 RBC 3.50 10^6/uL (3.85-5.65) L 10/05/23 04:31 Hgb 10.60 g/dL (11.27-16.99) L 10/05/23 04:31 Hct 32.8 % (36-47) L 10/05/23 04:31 MCV 93.7 fl (85-98) 10/05/23 04:31 MCH 30.3 pg (27-33) 10/05/23 04:31 MCHC 32.3 g/dL (30-55) 10/05/23 04:31 RDW 14.5 % (12.1-15.1) 10/05/23 04:31 Plt Count 240 10^3/cmm (157-399) 10/05/23 04:31 MPV 9.8 fL (7.4-10.4) 10/05/23 04:31 Neut % (Auto) 88.9 % 10/05/23 04:31 Lymph % (Auto) 6.1 % 10/05/23 04:31 [place] % (Auto) 3.4 % 10/05/23 04:31 Eos % (Auto) 0.0 % 10/05/23 04:31 Baso % (Auto) 0.1 % 10/05/23 04:31 Neut # (Auto) 7.13 10^3/uL (1.8-7.7) 10/05/23 04:31 Lymph # (Auto) 0.5 10^3/uL (0.8-4.8) L 10/05/23 04:31 [place] # (Auto) 0.3 10^3/uL (0.2-0.9) 10/05/23 04:31 Eos # (Auto) 0.0 10^3/uL (0.0-0.8) 10/05/23 04:31 Baso # (Auto) 0.0 10^3/uL (0.0-0.1) 10/05/23 04:31 Nucleated RBC % (auto) 0.2 % 10/05/23 04:31 Total Counted Not Reportable 10/05/23 11:05 Nucleated RBCs # 0.0 /100WBC 10/05/23 04:31 PT 14.20 SECONDS (12.1-14.9) 10/05/23 08:44 INR 1.07 (0.8-1.2) 10/05/23 08:44 APTT 35.1 SECONDS (23.9-36.7) 10/04/23 14:52 D-Dimer 1.22 ug/mLFEU (0-0.59) H 10/02/23 12:32 Specimen Type Arterial 10/01/23 06:57 Sample Site Radial, left 10/01/23 06:57 ABG pH 7.35 (7.35-7.45) 10/01/23 06:57 ABG pCO2 39.4 mmHg (35-45) 10/01/23 06:57 ABG pO2 55.9 mmHg (80.0-100.0) L 10/01/23 06:57 ABG HCO3 21.7 mmol/L (22-26) L 10/01/23 06:57 ABG O2 Saturation Not Reportable 10/01/23 06:57 ABG Base Excess -3.5 mmol/L (-2.0-2.0) L 10/01/23 06:57 Neymar Test Pos 10/01/23 06:57 A-a O2 Gradient 5.9 mmHg (5-10) 10/01/23 06:57 Hematocrit < 10.0 % (37-47) L 10/01/23 06:57 Hgb O2 Saturation Not Reportable 10/01/23 06:57 Carboxyhemoglobin Not Reportable 10/01/23 06:57 Methemoglobin Not Reportable 10/01/23 06:57 Total Hemoglobin 0.1 g/dL (12-16) L 10/01/23 06:57 Sodium 137.0 mmol/L (131-143) 10/01/23 06:57 Potassium 4.7 mmol/L (3.5-5.0) 10/01/23 06:57 Glucose 114.0 mg/dL (70-115) 10/01/23 06:57 Ionized Calcium 1.2 mmol/L (1.1-1.4) 10/01/23 06:57 O2 Delivery Device Nc 10/01/23 06:57 O2 Liters/Min 7.0 % 10/01/23 06:57 Server Administrator ID [place] 10/01/23 06:57 Sodium 147 mmol/L (136-145) H 10/05/23 04:31 Potassium 3.3 mmol/L (3.5-5.1) L 10/05/23 04:31 Chloride 102 mmol/L (98-107) 10/05/23 04:31 Carbon Dioxide 32 mmol/L (22-29) H 10/05/23 04:31 Anion Gap 16.3 (5-19) 10/05/23 04:31 BUN 55 mg/dL (8-23) H 10/05/23 04:31 Creatinine 1.6 mg/dL (0.5-0.9) H 10/05/23 04:31 GFR Calculation Not Reportable 10/05/23 04:31 Glucose 226 mg/dL (65-115) H 10/05/23 04:31 Estimat Average Glucose 114 10/03/23 02:01 Hemoglobin A1c 5.6 % (4.0-6.0) 10/03/23 02:01 Calculated Osmolality 326 mOsm/kg (285-295) H 10/05/23 04:31 Lactic Acid 2.3 mmol/L (0.5-2.2) H 10/01/23 06:46 Lactic Acid (Sepsis) 1.0 mmol/L (0.5-2.2) 10/01/23 11:15 Calcium 9.3 mg/dL (8.5-10.5) 10/05/23 04:31 Magnesium 2.3 mg/dL (1.7-2.3) 10/05/23 04:31 Iron 35 ug/dL (37-145) L 10/01/23 06:46 TIBC 225 mcg/dl 10/01/23 06:46 % Saturation 15.5 % (20-50) L 10/01/23 06:46 Unsat Iron Binding 190 ug/dL (112-347) 10/01/23 06:46 Ferritin 1125 ng/mL (15-150) H 10/01/23 06:46 Total Bilirubin 0.6 mg/dL (0.15-1.2) 10/04/23 03:49 AST 124 U/L (0-32) H 10/04/23 03:49 ALT 121 U/L (0-33) H 10/04/23 03:49 Alkaline Phosphatase 81 U/L (35-105) 10/04/23 03:49 Creatine Kinase 142 U/L (26-192) 10/01/23 06:46 Troponin T Baseline 45 ng/L (0-10) H 10/01/23 06:46 Troponin T 120 Minute 45.56 ng/L (0-10) H 10/01/23 08:23 Delta Troponin T 0.56 ABS# (0-10) 10/01/23 08:23 Troponin T Hi Sens 6Hr 40.76 ng/L (0-10) H 10/01/23 12:25 Troponin T Hi Sens 6Hr Delta -4.24 ng/L (0-12) L 10/01/23 12:25 NT-Pro-B Natriuret Pep 95194 pg/mL (0-450) H 10/01/23 06:46 Total Protein 6.3 g/dL (6.6-8.7) L 10/04/23 03:49 Albumin 3.4 g/dL (3.5-5.2) L 10/04/23 03:49 Globulin 2.9 g/dL (1.3-4.6) 10/04/23 03:49 Triglycerides 116 mg/dL (0-150) 10/03/23 02:01 Cholesterol 161 mg/dL (0-200) 10/03/23 02:01 LDL Cholesterol, Calc 85 mg/dL (50-129) 10/03/23 02:01 Total VLDL Cholesterol 23 mg/dL (0-30) 10/03/23 02:01 HDL Cholesterol 53 mg/dL (60-100) L 10/03/23 02:01 Cholesterol/HDL Ratio 3.04 mg/dL (0.0-4.40) 10/03/23 02:01 Vitamin B12 1529 pg/mL (232-1245) H 10/02/23 04:25 Folate 9.6 ng/mL (4.8-37.3) 10/03/23 02:01 Procalcitonin 2.65 ng/mL (0-0.5) H 10/01/23 06:46 TSH 0.51 uIU/mL (0.27-4.20) 10/01/23 06:46 Urine Color Yellow (Yellow) 10/01/23 07:26 Urine Appearance Clear (CLEAR) 10/01/23 07:26 Urine pH 5 (5-7) 04/05/24 07:26 Ur Specific [place] 1.020 (1.005-1.030) 10/01/23 07:26 Urine Protein Neg (Negative) 10/01/23 07:26 Urine Glucose (UA) Norm (Normal) 10/01/23 07:26 Urine Ketones Negative (Negative) 10/01/23 07:26 Urine Blood 2+ (Negative) H 10/01/23 07:26 Urine Nitrate Negative (Negative) 10/01/23 07:26 Urine Bilirubin Neg (Negative) 10/01/23 07: Urine Urobilinogen Neg mg/dL (Negative) 10/01/23 07:26 Ur Leukocyte Esterase Trace (Negative) H 10/01/23 07:26 Urine RBC 0-4 /hpf (0-2) H 10/01/23 07:26 Urine WBC 0-4 /hpf (0-5) H 10/01/23 07:26 Ur Eosinophil Smear 0 (0-0) 10/02/23 11:41 Ur Squamous Epith Cells 5-10 /hpf (0-5) H 10/01/23 07:26 Ur Transition Epith Cell 0-4 /hpf 10/01/23 07:26 Amorphous Sediment Not Reportable 10/01/23 07:26 Urine Bacteria 1+ /hpf (NONE) H 10/01/23 07:26 Hyaline Casts 15-25 /lpf H 10/01/23 07:26 Urine Mucus Trace /hpf 10/01/23 07:26 Urine Eosinophils No eosinophils seen 10/02/23 11:41 Urine Creatinine 47 mg/dL (28-217) 10/02/23 11:41 Pleural Color Jovana (Pale Yellow) H 10/05/23 11:05 Pleural Appearance Cloudy (CLEAR) 10/05/23 11:05 Pleural pH 9.00 (6.5-7.5) H 10/05/23 11:05 Pleural WBC 226.000 /uL (0-1000) 10/05/23 11:05 Pleural RBC 11.000 10^3/uL 10/05/23 11:05 Pleural Other Cells Not Reportable 10/05/23 11:05 Pleural Polynuclear % 19 % 10/05/23 11:05 Pleural Mononuclear % 81 % 10/05/23 11:05 Pleural LDH 155 U/L 10/05/23 11:05 Pleural Glucose 207.0 mg/dL 10/05/23 11:05 Vancomycin Trough 15.5 ug/mL (10-15) H 10/07/23 09:17 Adenovirus (PCR) Not detected (NOT DETECT) 10/01/23 08:01 C. pneumoniae DNA (PCR) Not detected (NOT DETECT) 10/01/23 08:01 Coronavirus 229E (PCR) Not detected (NOT DETECT) 10/01/23 08:01 Human Metapneumovir PCR Not detected (NOT DETECT) 10/01/23 08:01 Influenza A (H1) PCR Not detected (NOT DETECT) 10/01/23 08:01 Influ A (H1/09) PCR Not detected (NOT DETECT) 10/01/23 08:01 Influenza A (H3) PCR Not detected (NOT DETECT) 10/01/23 08:01 Influenza Type A (PCR) Not detected (NOT DETECT) 10/01/23 08:01 Influenza Type B (PCR) Not detected (NOT DETECT) 10/01/23 08:01 M. pneumoniae (PCR) Not detected (NOT DETECT) 10/01/23 08:01 Parainfluenza 1 (PCR) Not detected (NOT DETECT) 10/01/23 08:01 Parainfluenza 2 (PCR) Not detected (NOT DETECT) 10/01/23 08:01 Parainfluenza 3 (PCR) Not detected (NOT DETECT) 10/01/23 08:01 Parainfluenza 4 (PCR) Not detected (NOT DETECT) 10/01/23 08:01 RSV Type A (PCR) Not detected (NOT DETECT) 10/01/23 08:01 RSV Type B (PCR) Not detected (NOT DETECT) 10/01/23 08:01 Entero/Rhino (PCR) Not detected (NOT DETECT) 10/01/23 08:01 SARS-CoV-2 (PCR) Not detected (NOT DETECT) 10/01/23 08:01 MRSA (PCR) Not detected (NOT DETECTED) 10/01/23 18:15 Path Cons w/Slide Yes 10/05/23 11:05 Vitals Last Vital Signs Temp 98.3 F 10/07/23 11:44 Pulse 66 10/07/23 11:44 Resp 16 10/07/23 11:44 BP 152/68 10/07/23 11:44 Pulse Ox 95 04/11/24 11:44 O2 Del Method Nasal Cannula 10/07/23 11:44 O2 Flow Rate 2 10/07/23 10:32 Discharge Plan Discharge Patient Disposition: Home Condition: Stable Prescriptions: New Medrol (Jonas) 4 mg tablets,dose pack See Rx Instructions .ROUTE .COMPLEX Qty: 21 0RF Rx Instructions: orally per package directions Continued atorvastatin 20 mg tablet 20 mg PO DAILY Qty: 90 11RF clonazepam [Klonopin] 0.5 mg tablet 0.5 mg PO BID Qty: 60 5RF hydrocodone-acetaminophen 5-325 mg tablet 1 tab PO BID 30 Days Qty: 60 0RF losartan 50 mg tablet 50 mg PO DAILY furosemide 40 mg tablet 40 mg PO DAILY amlodipine 5 mg tablet 5 mg PO DAILY meloxicam 7.5 mg tablet 7.5 mg PO DAILY Rx Instructions: WITH FOOD FOR ARTHRITIS. STOP IF BLACK OR BLOODY STOOLS. isosorbide mononitrate 60 mg tablet extended release 24 hr 60 mg PO DAILY propranolol 10 mg tablet 10 mg PO BID potassium chloride [Klor-Con M20] 20 mEq tablet,ER particles/crystals 20 meq PO DAILY levothyroxine 50 mcg tablet 50 mcg PO DAILY Eliquis 2.5 mg tablet 2.5 mg PO BID Discharge Orders: Discharge Order (Routine); Ordered 10/07/23 Ordered By: Bijal Osborn Other Ambulatory Orders: DME: Oxygen (Order) Location: None Selected Ordered By: Bijal Osborn Referrals: Jerry Xavier MD [Primary Care Provider] - 10/13/23 10:00 am () Discharge Diet: Advance as tolerated Discharge Activity: Increase activity as tolerated Patient Instructions: Opioid Safety Activity Restrictions/Additional Instructions: follow up PCP in 10 days Discharge Attestations Time Spent in Discharge Care*: less than 30 min Quality Metrics Clinical Quality Measures [ No reported AMI, CVA or VTE this stay] Coding Level of Care Code Acute Code for Chg Fwd Diagnoses Acute hypoxic respiratory failure J96.01 Anemia D64.9 Elevated troponin R79.89 Transaminitis R74.01 Community acquired pneumonia J18.9 Acute exacerbation of chronic obstructive airways disease J44.1 Congestive heart failure I50.9 Time Spent (min) 25
== END 2023-10-07 17:21 | disposition home health service (06) | DRG 193 ==
LOC: ER 07:00 → ICU 08:51 → MEDSURG 10-02 18:38
PROVIDERS: Internal Medicine; Student in an Organized Health Care Education/Training Program; Admitting Provider Internal Medicine; Emergency Provider Family Medicine; PCP Family Medicine; Visit Provider Internal Medicine
DX: J18.9 Pneumonia, unspecified organism (principal); I21.A1 Myocardial infarction type 2; I50.33 Acute on chronic diastolic (congestive) heart failure; J96.01 Acute respiratory failure with hypoxia; J44.0 Chronic obstructive pulmonary disease with (acute) lower respiratory infection; J44.1 Chronic obstructive pulmonary disease with (acute) exacerbation; I13.0 Hypertensive heart and chronic kidney disease with heart failure and stage 1 through stage 4 chronic kidney disease, or unspecified chronic kidney disease; N17.9 Acute kidney failure, unspecified; G20.A1 Parkinson's disease without dyskinesia, without mention of fluctuations; E03.9 Hypothyroidism, unspecified; I25.10 Atherosclerotic heart disease of native coronary artery without angina pectoris; M06.9 Rheumatoid arthritis, unspecified; I48.91 Unspecified atrial fibrillation; N18.9 Chronic kidney disease, unspecified; D63.1 Anemia in chronic kidney disease; E87.6 Hypokalemia; I08.3 Combined rheumatic disorders of mitral, aortic and tricuspid valves; F41.9 Anxiety disorder, unspecified; I27.20 Pulmonary hypertension, unspecified; Z11.52 Encounter for screening for COVID-19; Z79.01 Long term (current) use of anticoagulants; Z87.891 Personal history of nicotine dependence; Z95.3 Presence of xenogenic heart valve
CPT/HCPCS: 32555; 36415; 36600; 51702; 71045; 71250; 74176; 74230; 76705; 80048; 80051; 80053; 80061; 80202; 80503; 81001; 82274; 82330; 82550; 82570; 82607; 82728; 82746; 82805; 82945; 83036; 83540; 83550; 83605; 83615; 83735; 83880; 83986; 84145; 84443; 84484; 85025; 85378; 85610; 85730; 85999; 86403; 87040; 87070; 87075; 87205; 87449; 87486; 87581; 87633; 87641; 89050; 92523; 92610; 92611; 93005; 93306; 94640; 94760; 96365; 96367; 96372; 96375; 96376; 99285; C9113; J0360; J0456; J0696; J1100; J1644; J1650; J1940; J2543; J2919; J2920; J3370; J7050; J7626; Q0144

== ENCOUNTER → 2023-12-14 13:03 | Outpatient (BNVA) | payer MEDICARE, SELFPAY | PROVIDERS: PCP Family Medicine; Visit Provider Family Medicine | DX: L98.9 Disorder of the skin and subcutaneous tissue, unspecified (principal) | CPT/HCPCS: 88305 ==